=== PATIENT | female | born 1935 | race Asian ===

== ENCOUNTER 2019-12-07 23:40 | Emergency (ER) | payer MEDICARE, MEDICAID ==
[~2019-12-07] VITALS: Ht 160 cm; Wt 59.0 kg
[2019-12-08] MEDS ORDERED: normal saline 1000ML IV soln IVB ONE ×2 (00:20→01:10)
[2019-12-08 00:29] LABS: HEMATOCRIT 34.9 % (35.0-45.0); HEMOGLOBIN 10.9 g/dl (12.0-16.0); MEAN CORPUSCULAR HEMOGLOBIN 19.1 PG (27.0-31.0); MEAN CORPUSCULAR HGB CONC 31.2 g/dL (33.0-36.5); MEAN CORPUSCULAR VOLUME 61.3 FL (78-98); MEAN PLATELET VOLUME 8.7 FL (7.4-10.4); PLATELET COUNT 194 X10'3 (140-440); RED CELL DISTRIBUTION WIDTH 15.9 % (11.5-14.5); WHITE BLOOD COUNT 7.2 X10'3 (4.5-11.0)
[2019-12-08 00:42] LABS: ALANINE AMINOTRANSFERASE 20 U/L (12-78); ALBUMIN 3.4 G/DL (3.4-5.0); ALBUMIN/GLOBULIN RATIO 0.9 (1.1-1.5); ALKALINE PHOSPHATASE 97 IU/L (46-116); ANION GAP 12 (8-16); ASPARTATE AMINO TRANSFERASE 24 U/L (10-37); BILIRUBIN,TOTAL 0.7 MG/DL (0.1-1.0); BLOOD UREA NITROGEN 24 MG/DL (7-18); BUN/CREATININE RATIO 10.4 (6.6-38.0); CALCIUM 9.2 MG/DL (8.5-10.1); CHLORIDE 105 MMOL/L (99-107); CREATININE 2.31 MG/DL (0.40-0.90); GLUCOSE 133 MG/DL (70-104); SODIUM 143 MMOL/L (135-145); TOTAL PROTEIN 7.2 G/DL (6.4-8.2); eGFR 20 ML/MIN
[2019-12-08 00:46] LABS: POTASSIUM 2.9 MMOL/L (3.5-5.1)
[2019-12-08] MEDS ORDERED: potassium Cl 20 mEq SR tablet PO STA (01:01)
[2019-12-08] MEDS ORDERED: potassium Cl 10 mEq/100mL bag IV ONE (01:05)
--- NOTE | 2019-12-08 01:17 | NUR ---
notified of elevated BP. No new orders at this time. MD to examine pt. soon.
[2019-12-08 02:10] LABS: CLARITY,URINE CLEAR (Clear); COLOR,URINE YELLOW (Yellow); GLUCOSE, URINE NEGATIVE (Neg); KETONES,URINE NEGATIVE (Neg); LEUKOCYTE ESTERASE ,URINE NEGATIVE (Neg); NITRITES, URINE NEGATIVE (Neg); OCCULT BLOOD,URINE NEGATIVE (Neg); PROTEIN,URINE 100 mg/dl (Neg); UROBILINOGEN,URINE 0.2 E.U/dL (0.2-1.0)
[2019-12-08 02:12] LABS: UA COLLECTION TYPE CLN CATCH MIDSTREAM
[2019-12-08 02:26] LABS: RBC,URINE NONE SEEN /HPF (0-2); WBC,URINE 0-4 /HPF (0-4)
[2019-12-08 02:27] LABS: BACTERIA,URINE NONE SEEN /HPF (Neg); MUCUS STRANDS MODERATE /LPF (Neg); SQUAMOUS EPITHELIAL CELL,UR FEW /LPF (FEW)
[2019-12-08 02:45] VITALS: BP 207/106
[2019-12-08 03:27] LABS: TOTAL CELLS COUNTED 100
[2019-12-08 03:28] LABS: MICROCYTOSIS 2+; PLATELET ESTIMATE NORMAL
[2019-12-08 03:32] LABS: HYPOGRANULAR PLATELETS FEW
[2019-12-08 03:33] LABS: TARGET CELLS FEW
== END 2019-12-08 03:03 | disposition home or self-care (01) ==
LOC: ER 23:41
DX: R53.1 Weakness (principal); K04.7 Periapical abscess without sinus; E87.6 Hypokalemia; E86.0 Dehydration; I10 Essential (primary) hypertension; I48.91 Unspecified atrial fibrillation
CPT/HCPCS: 36415; 80053; 81001; 82948; 84439; 84443; 84484; 85025; 93005; 96365; 99284; J3480; J7030; 96360; 96361

== ENCOUNTER 2019-12-10 23:07 | Inpatient (IN) | payer MEDICARE, OTHER ==
[~2019-12-10] VITALS: Ht 154.9 cm; Wt 47.7 kg
[2019-12-11 00:06] LABS: HEMATOCRIT 35.5 % (35.0-45.0); HEMOGLOBIN 11.1 g/dl (12.0-16.0); MEAN CORPUSCULAR HGB CONC 31.3 g/dL (33.0-36.5); MEAN CORPUSCULAR VOLUME 60.8 FL (78-98); MEAN PLATELET VOLUME 8.9 FL (7.4-10.4); PLATELET COUNT 215 X10'3 (140-440); RED BLOOD COUNT 5.84 X10'6 (4.20-5.60); RED CELL DISTRIBUTION WIDTH 15.6 % (11.5-14.5); WHITE BLOOD COUNT 7.1 X10'3 (4.5-11.0)
[2019-12-11 00:24] LABS: ALANINE AMINOTRANSFERASE 25 U/L (12-78); ALBUMIN 3.6 G/DL (3.4-5.0); ALBUMIN/GLOBULIN RATIO 0.9 (1.1-1.5); ALKALINE PHOSPHATASE 99 IU/L (46-116); ANION GAP 9 (8-16); ASPARTATE AMINO TRANSFERASE 22 U/L (10-37); BILIRUBIN,TOTAL 1.1 MG/DL (0.1-1.0); BLOOD UREA NITROGEN 25 MG/DL (7-18); BUN/CREATININE RATIO 10.6 (6.6-38.0); CALCIUM 9.5 MG/DL (8.5-10.1); CHLORIDE 106 MMOL/L (99-107); CREATININE 2.36 MG/DL (0.40-0.90); GLUCOSE 90 MG/DL (70-104); POTASSIUM 3.2 MMOL/L (3.5-5.1); SODIUM 143 MMOL/L (135-145); TOTAL CARBON DIOXIDE 27.8 MMOL/L (24-32); TOTAL PROTEIN 7.5 G/DL (6.4-8.2); eGFR 20 ML/MIN
[2019-12-11 00:26] LABS: ETHANOL < 0.010 GM/DL (0.0-0.010)
[2019-12-11 00:30] LABS: ANISOCYTOSIS 2+; PLATELET ESTIMATE NORMAL; TOTAL CELLS COUNTED 100
[2019-12-11 00:31] LABS: POIKILOCYTOSIS 1+; TARGET CELLS FEW
[2019-12-11 00:33] LABS: CLARITY,URINE CLEAR (Clear); COLOR,URINE YELLOW (Yellow); GLUCOSE, URINE NEGATIVE (Neg); KETONES,URINE NEGATIVE (Neg); LEUKOCYTE ESTERASE ,URINE NEGATIVE (Neg); NITRITES, URINE NEGATIVE (Neg); OCCULT BLOOD,URINE NEGATIVE (Neg); PH,URINE 5.5 (4.8-8.0); PROTEIN,URINE 100 mg/dl (Neg); UROBILINOGEN,URINE 0.2 E.U/dL (0.2-1.0)
[2019-12-11] MEDS ORDERED: normal saline 1000ML IV soln IVB ONE (00:35)
[2019-12-11 00:36] LABS: URINE AMPHETAMINE SCREEN NEGATIVE (Neg); URINE BARBITUATE SCREEN NEGATIVE (Neg); URINE BENZODIAZEPINES SCREEN NEGATIVE (Neg); URINE CANNABINOID SCREEN NEGATIVE (Neg); URINE COCAINE SCREEN NEGATIVE (Neg); URINE METHADONE SCREEN NEGATIVE (Neg); URINE OPIATE SCREEN NEGATIVE (Neg); URINE PHENCYCLIDINE SCREEN NEGATIVE (Neg)
[2019-12-11 00:37] LABS: UA COLLECTION TYPE CLN CATCH MIDSTREAM
[2019-12-11 00:38] LABS: WBC,URINE 0-4 /HPF (0-4)
[2019-12-11 00:39] LABS: BACTERIA,URINE NONE SEEN /HPF (Neg); RBC,URINE NONE SEEN /HPF (0-2); SQUAMOUS EPITHELIAL CELL,UR FEW /LPF (FEW)
[2019-12-11] MEDS ORDERED: labetalol 20mg/4ml (5mg/ml) syringe IV ONE (00:55)
[2019-12-11] MEDS ORDERED: FURO-150 PO (02:47)
[2019-12-11] MEDS ORDERED: POTA8CAP20 PO (02:47)
[2019-12-11] MEDS ORDERED: HYDR100T27 PO (02:47)
[2019-12-11] MEDS ORDERED: LOSA100T57 PO (02:47)
[2019-12-11] MEDS ORDERED: GLIP5TAB13 PO (02:47)
[2019-12-11] MEDS ORDERED: APIX2.5T PO (02:47)
[2019-12-11] MEDS ORDERED: ATOR40TA PO (02:47)
[2019-12-11] MEDS ORDERED: DIGO125T20 PO (02:47)
[2019-12-11] MEDS ORDERED: ISOS30TA9 PO (02:47)
[2019-12-11] MEDS ORDERED: SERT25TA PO (02:47)
--- NOTE | 2019-12-11 06:20 | NUR ---
PATIENT PACKET FAXED TO [facility] BY RENATO ALEXANDER
[2019-12-11] MEDS: losartan 50mg tablet PO SCH (08:49)
[2019-12-11] MEDS: apixaban 2.5mg tablet PO SCH ×2 (08:49→21:04)
[2019-12-11] MEDS: hydrALAZINE 25 MG tablet PO SCH ×3 (08:49→23:19)
[2019-12-11] MEDS: potassium chloride 8mEq ER tablet PO SCH (08:50)
[2019-12-11] MEDS: atorvastatin 20mg tablet PO SCH (08:50)
[2019-12-11] MEDS: glipizide 5mg tablet PO SCH ×2 (08:50→21:05)
[2019-12-11] MEDS: sertraline 50mg tablet PO SCH (08:50)
[2019-12-11] MEDS: furosemide 20MG tablet PO SCH (08:50)
[2019-12-11] MEDS: digoxin 125mcg (0.125mg) tablet PO SCH (09:28)
--- NOTE | 2019-12-11 10:16 | NUR ---
assisted patient into wheelchair and transfered from room 9 in main ER to room 26 in overflow without incident
--- NOTE | 2019-12-11 10:35 | NUR ---
pt is in bed laying on her left side, no s/s of agitation observed
--- NOTE | 2019-12-11 11:25 | NUR ---
pt [facility] is here and [facility], pt is still laying in bed eyes closed, regular breathing present, no s/s of distress observed
--- NOTE | 2019-12-11 12:37 | NUR ---
pt assisted to the bathroom, she stated multiple times that she wants to , no longer wishes to live, to let her go
--- NOTE | 2019-12-11 12:42 | NUR ---
SON: CHULA HDEZ [phone] CELL, HE WORKS AT [facility] [employer] [facility] [phone] IF HE CANNOT BE REACHED, CALL [facility] [phone]
--- NOTE | 2019-12-11 13:30 | NUR ---
PT ASSISTED TO BATHROOM, ATE VERY LITTLE FOR LUNCH
--- NOTE | 2019-12-11 14:32 | NUR ---
PT IS RESTING ON LEFT SIDE, ACCEPTED MEDICATION WITH NO DIFFICULTY, WILL ONLY DRINK SIPS OF WATER, ATE VERY LITTLE
--- NOTE | 2019-12-11 15:12 | NUR ---
PT IS LAYING IN BED ON RIGHT SIDE REGULAR BREATHING OBSERVED, WILL CONTINUE TO MONITOR
--- NOTE | 2019-12-11 16:23 | NUR ---
SPOKE TO ABDULKADIR IN PHARMACY, TO VERIFY DOES OF HYDRALAZINE 100MG TID, HE STATES THIS IS THE CORRECT DOSE UPTO 300MG A DAY
--- NOTE | 2019-12-11 16:42 | NUR ---
PT WAS ACCEPTING OF MEDICATIONS AND BLOOD DRAW, ALSO DRANK 240 ML WATER
--- NOTE | 2019-12-11 20:02 | NUR ---
The patient has been resting on her bed. She has a flat affect. She does not respond verbally but does shake her head yes or no. She reports she feels depressed but denies suicidal thoughts. She is ate very poorly and only took a few bits of her evening meal.
--- NOTE | 2019-12-11 22:08 | NUR ---
The patient appears to be sleeping
--- NOTE | 2019-12-11 23:20 | NUR ---
Patient up to use the bathroom with assist
--- NOTE | 2019-12-12 01:50 | NUR ---
The patient appears to be sleeping
--- NOTE | 2019-12-12 04:06 | NUR ---
The patient appears to be sleeping
[2019-12-12] MEDS: digoxin 125mcg (0.125mg) tablet PO SCH (08:00)
[2019-12-12] MEDS: atorvastatin 20mg tablet PO SCH (09:51)
[2019-12-12] MEDS: apixaban 2.5mg tablet PO SCH ×2 (09:52→20:15)
[2019-12-12] MEDS: losartan 50mg tablet PO SCH (09:52)
[2019-12-12] MEDS: sertraline 50mg tablet PO SCH (09:52)
[2019-12-12] MEDS: glipizide 5mg tablet PO SCH ×2 (09:52→20:15)
[2019-12-12] MEDS: potassium chloride 8mEq ER tablet PO SCH (09:52)
[2019-12-12] MEDS: furosemide 20MG tablet PO SCH (09:52)
[2019-12-12] MEDS: hydrALAZINE 25 MG tablet PO SCH ×2 (09:52→16:53)
--- NOTE | 2019-12-12 10:08 | NUR ---
ASSISSTED PT TO BR VIA W/C, ASSESSMENT AND VS DONE PRIOR TO AM MEDS. PT COOPERATIVE AND CALM BUT HAS A SAD AFFECT, WAITING FAMILY TO COME IN TO CONVERSE WITH [facility]
--- NOTE | 2019-12-12 10:43 | NUR ---
PT SON IN TO VISIT. NOTIFIED [facility].
--- NOTE | 2019-12-12 12:55 | NUR ---
ACCUCHECK 103
--- NOTE | 2019-12-12 13:23 | NUR ---
LUNCH TRAY GIVEN
--- NOTE | 2019-12-12 14:25 | NUR ---
ASSISSTED PT WITH SOME LUNCH BUT PT ONLY WANTED A FEW BITES. WILL ATTEMPT AGAIN
--- NOTE | 2019-12-12 16:47 | NUR ---
patient asleep at this time.
--- NOTE | 2019-12-12 17:29 | NUR ---
pt up, assissted walking to br, encouraged fluids
--- NOTE | 2019-12-12 21:00 | NUR ---
Pt appears to be resting comfortably in bed. No s/s of distress noted
--- NOTE | 2019-12-12 22:49 | NUR ---
Pt appears to be resting comfortably in bed. No s/s of distress noted
--- NOTE | 2019-12-12 23:30 | NUR ---
Pt appears to be resting comfortably in bed. No s/s of distress noted
[2019-12-13] MEDS: hydrALAZINE 25 MG tablet PO SCH ×3 (00:12→16:26)
--- NOTE | 2019-12-13 00:34 | NUR ---
Pt appears to be resting comfortably in bed. No s/s of distress noted
--- NOTE | 2019-12-13 00:49 | NUR ---
Recieved pt sleeping, no distress noted, but pt coughing intermittently. Will continue to monitor.
--- NOTE | 2019-12-13 03:09 | NUR ---
Pt sleeping, will continue to monitor.
--- NOTE | 2019-12-13 05:27 | NUR ---
Pt sleeping. Will continue to monitor.
--- NOTE | 2019-12-13 08:19 | NUR ---
CALLED CHULA WONG NUMBER [phone] NON WORKING NUMBER. [facility] CONTACT [phone] WENT TO VOICEMAIL.
[2019-12-13] MEDS: glipizide 5mg tablet PO SCH ×2 (08:38→20:14)
[2019-12-13] MEDS: atorvastatin 20mg tablet PO SCH (08:39)
[2019-12-13] MEDS: apixaban 2.5mg tablet PO SCH ×2 (08:39→20:13)
[2019-12-13] MEDS: sertraline 50mg tablet PO SCH (08:43)
[2019-12-13] MEDS: potassium chloride 8mEq ER tablet PO SCH (08:43)
[2019-12-13] MEDS: furosemide 20MG tablet PO SCH (08:43)
[2019-12-13] MEDS: losartan 50mg tablet PO SCH (08:43)
[2019-12-13] MEDS: digoxin 125mcg (0.125mg) tablet PO SCH (08:43)
--- NOTE | 2019-12-13 10:00 | NUR ---
ambulated to br, stool x1
--- NOTE | 2019-12-13 10:50 | NUR ---
pt resting in bed. no s/s of distress or pain. rr of 15. will continue to monitor.
--- NOTE | 2019-12-13 14:56 | NUR ---
pt ambulating to br withoutas Addendum: 12/13/19 at 1457 by JLAMBERT pt ambulating to br without asst. tolerating well. voidedx1
--- NOTE | 2019-12-13 16:27 | NUR ---
pt cooperative with care. taking meds well.
--- NOTE | 2019-12-13 19:00 | NUR ---
PT RESTING IN BED. ENCOURAGED TO EAT DINNER TRAY.
--- NOTE | 2019-12-13 21:00 | NUR ---
PT ASLEEP ON R SIDE RR 14
--- NOTE | 2019-12-13 23:56 | NUR ---
PT ASLEEP IN BED ON L SIDE NO SIGNS OR SYMPTOMS OF DISTRESS
--- NOTE | 2019-12-14 | NUR ---
PT GIVEN 0000 DOSE OF HYDRALIZINE WITH NO ISSUES.
[2019-12-14] MEDS: hydrALAZINE 25 MG tablet PO SCH ×3 (00:14→16:49)
--- NOTE | 2019-12-14 02:00 | NUR ---
PT ASLEEP ON R SIDE RR WNL
--- NOTE | 2019-12-14 05:00 | NUR ---
IV D/C'D NO FLUIDS ORDERED. REMOVED AND CLEANSED WITH NO ISSUES.
[2019-12-14] MEDS: sertraline 50mg tablet PO SCH (08:38)
[2019-12-14] MEDS: atorvastatin 20mg tablet PO SCH (08:39)
[2019-12-14] MEDS: apixaban 2.5mg tablet PO SCH ×2 (08:39→20:29)
[2019-12-14] MEDS: potassium chloride 8mEq ER tablet PO SCH (08:39)
[2019-12-14] MEDS: furosemide 20MG tablet PO SCH (08:39)
[2019-12-14] MEDS: losartan 50mg tablet PO SCH (08:39)
[2019-12-14] MEDS: glipizide 5mg tablet PO SCH ×2 (08:39→20:29)
[2019-12-14] MEDS: digoxin 125mcg (0.125mg) tablet PO SCH (08:40)
--- NOTE | 2019-12-14 12:36 | NUR ---
Recieved report from BENJAMIN Hanks, assumed care. Pt. laying quietly with eyes closed. RR even and non-labored. nad noted.
--- NOTE | 2019-12-14 13:15 | NUR ---
Pt. sat up at bedside and looked at meal but did not eat. When coaxed to eat she shook her head no. nad noted.
--- NOTE | 2019-12-14 14:57 | NUR ---
Pt. resting in bed with eyes closed. breathing even and non-labored. nad noted.
--- NOTE | 2019-12-14 16:30 | NUR ---
Pt. laying on right side with eyes closed. breathing even and non-labored. nad noted.
--- NOTE | 2019-12-14 18:47 | NUR ---
PT CONTINUES TO SLEEP. SHE WOKE UP AND SAT UP WHEN DINNER ARRIVED BUT HAS NOT EATEN ANYTHING YET. WILL CONTINUE TO MONITOR.
--- NOTE | 2019-12-14 20:32 | NUR ---
PT RESTING IN BED- NOT DISPLAYING ANY SIGNS OF DISTRESS OR DISCOMFORT. PT TOOK MEDICATION WITH NO REFUSAL. WILL CONTINUE TO MONITOR.
--- NOTE | 2019-12-14 21:28 | NUR ---
PT CONTINUES TO REST IN BED; NO SIGNS OF DISTRESS OR DISCOMFORT NOTED. WILL CONTINUE TO MONITOR.
--- NOTE | 2019-12-14 22:34 | NUR ---
PT CONTINUES TO SLEEP WITH BREATHING RATE REGULAR AND UNLABORED. PT DOES NOT APPEAR TO BE IN ANY DISTRESS OR DISCOMFORT. WILL CONTINUE TO MONITOR.
--- NOTE | 2019-12-14 23:35 | NUR ---
PT CONTINUES TO SLEEP WITH NO SIGNS OF DISTRESS. BREATHING IS REGULAR. WILL CONTINUE TO MONITOR.
[2019-12-15] MEDS: hydrALAZINE 25 MG tablet PO SCH ×3 (00:49→17:11)
--- NOTE | 2019-12-15 01:47 | NUR ---
PT CONTINUES TO SLEEP WITH BREATHING RATE REGULAR AND UNLABORED. WILL CONTINUE TO MONITOR.
--- NOTE | 2019-12-15 03:59 | NUR ---
PT CONTINUES TO SLEEP WITH BREATHING RATE WNL AND UNLABORED. WILL CONTINUE TO MONITOR.
--- NOTE | 2019-12-15 05:04 | NUR ---
PT CONTINUES TO SLEEP WITH BREATHING RATE NORMAL AND UNLABORED. WILL MONITOR.
--- NOTE | 2019-12-15 07:56 | NUR ---
pt sleeping quietly
[2019-12-15] MEDS: atorvastatin 20mg tablet PO SCH (08:16)
[2019-12-15] MEDS: potassium chloride 8mEq ER tablet PO SCH (08:16)
[2019-12-15] MEDS: losartan 50mg tablet PO SCH (08:16)
[2019-12-15] MEDS: furosemide 20MG tablet PO SCH (08:16)
[2019-12-15] MEDS: sertraline 50mg tablet PO SCH (08:16)
[2019-12-15] MEDS: glipizide 5mg tablet PO SCH ×2 (08:16→22:13)
[2019-12-15] MEDS: apixaban 2.5mg tablet PO SCH ×2 (08:18→22:13)
[2019-12-15] MEDS: digoxin 125mcg (0.125mg) tablet PO SCH (08:18)
--- NOTE | 2019-12-15 08:32 | NUR ---
pt awake eating breakfast.
--- NOTE | 2019-12-15 13:31 | NUR ---
Patient is sleeping. In view from nursing station.
--- NOTE | 2019-12-15 16:27 | NUR ---
spoke with shantal son phone number [phone], correct number. shantal work number [phone] at [employer]. states, past 3-4 weeks not allowing any care. doesnt change her clothes and will not bathe. refusing to eat but will eat when she wants. shantal also mentioned that he feels like she putting a guilt trip on him, "soha taken care of you as a baby and now your not taking care of me." hes trying to do the best he can. will cook what she wants but pt wont eat it, then when hes not looking will eat leftovers. shantal becoming very frustrated. pt will refuse to eat all seafood. shantal would like to get a DNR for pt if this is her wish, but feels a professional motor polarizer would be best because of conflict of interest. will contact in house social worker aide. pt is refusing to bathe and change her clothes for me today. ate 25% of breakfast and 0% lunch.
--- NOTE | 2019-12-15 16:52 | NUR ---
spoke with kathleen family friend [phone], has been very difficult for her and shantal. pt does not want to eat, change her clothes and bathe. all pt says is i want to . has become very hard to take care of her.
--- NOTE | 2019-12-15 18:49 | NUR ---
Patient is sitting up in bed. Patient is tearful looking. Patient speaks Malawian. Patient tells this radio script writer that she wants to go outside and . Patient tells this radio script writer that she is Budist. She states she does not want to live. The patient reportibly lost her recently and then experienced a CVA? Patient is reported to be ambulatory . The patient has eaten approximately 20 percent of her dinner. In discussion with this patient she begins to speak Czech with this radio script writer. The patient does speak Czech, this was not previously observed. The patient speaks slowly and softly. Patient denies pain. The patient calms when talking about her Budist uatsdin. The patient was given warm blankets which she accepted. The patient then went to sleep on her right side. Addendum: 12/16/19 at 0413 by LONI Patients affect is flat. She admits to depression. "I want to go outside and ." Patient is cooperative with staff and polite. Patient does not offer a suicide plan.
--- NOTE | 2019-12-15 19:45 | NUR ---
Patient repositions self in bed onto her left side.
--- NOTE | 2019-12-15 21:00 | NUR ---
Patient sleeping quietly. Patient repositions self in bed.
--- NOTE | 2019-12-15 22:16 | NUR ---
This advertising writer awoke patient for her medications. The patient is medication compliant. When asked how she was doing the patient replied aok. The patient was given another warm blanket. She returned to sleep.
[2019-12-16] MEDS: hydrALAZINE 25 MG tablet PO SCH ×3 (00:03→15:56)
--- NOTE | 2019-12-16 01:15 | NUR ---
Patient sleeping on her left side, bed in low fowlers position. In view from nursing station.
--- NOTE | 2019-12-16 03:56 | NUR ---
Patient is sleeping quietly, low fowlers position in bed.
--- NOTE | 2019-12-16 05:01 | NUR ---
Patient is sleeping low fowlers in bed.
--- NOTE | 2019-12-16 07:30 | NUR ---
RN performed CBG which was 95. RN attempted to assess pt. Pt. is A&O to self only. When asked why she is here, pt. responded, "No... I wantto , I want to ". When asked if she has a plan pt. states, "I want to ". When asked if she hears voices, pt. continues to perseverate stating, "I want to go, I want to go, I want to go". Pt. refused physical assessment.
[2019-12-16] MEDS: glipizide 5mg tablet PO SCH ×2 (07:57→22:30)
[2019-12-16] MEDS: atorvastatin 20mg tablet PO SCH (07:58)
[2019-12-16] MEDS: losartan 50mg tablet PO SCH (07:58)
[2019-12-16] MEDS: potassium chloride 8mEq ER tablet PO SCH (07:58)
[2019-12-16] MEDS: sertraline 50mg tablet PO SCH (07:58)
[2019-12-16] MEDS: furosemide 20MG tablet PO SCH (07:59)
[2019-12-16] MEDS: apixaban 2.5mg tablet PO SCH ×2 (08:02→22:30)
[2019-12-16] MEDS: digoxin 125mcg (0.125mg) tablet PO SCH (08:02)
--- NOTE | 2019-12-16 08:51 | NUR ---
Pt. ate her oatmeal and drank a few sips of her coffee.
--- NOTE | 2019-12-16 09:30 | NUR ---
Pt. asleep in supine position in bed. Pt. R&R of respirations normal. Pt. in no apparent distress.
--- NOTE | 2019-12-16 09:43 | NUR ---
Breaking primary RN, pt is supine inbed, regular breathing observed, appears to be asleep, no needs at this time
--- NOTE | 2019-12-16 10:00 | NUR ---
Pt. escorted up to [facility] in wheel chair for shower. while escorted, pt. had one x2 emesis, which appeared to be her oatmeal she ate this morning. Pt. agreed she still wanted a shower. Pt. showered by 2 [place] techs and returned to ER room.
--- NOTE | 2019-12-16 10:15 | NUR ---
Pt. voided x1 before she showered per tech report.
--- NOTE | 2019-12-16 10:45 | NUR ---
Pt.'s son visited. During visit pt.'s interaction was mostly telling her son she wanted to . Pt.'s son is supportive and concerned, informing this RN that he is the only sibling who can care for her and he is concerened about his mom being discharged in her current state. Pt.'s son reports that pt. moved up here from [place] after her stroke so he could better care for her. Pt.'s son reports that pt. lives with family friends and he is often over checking up on her. Pt.'s son reports pt. is Yazdanism, but religion support is lacking due to COVID-19 restrictions. RN offerred second ride fare collector support to pt. but pt. did not respond to offer.
--- NOTE | 2019-12-16 12:14 | NUR ---
breaking primary RN, pt is laying on her right side, eyes closed, regular breathing observed, no agitatation apparent
--- NOTE | 2019-12-16 13:00 | NUR ---
Pt. refused her lunch. Pt. took 1300 medication. Pt. encouraged to drink more but refused.
--- NOTE | 2019-12-16 14:23 | NUR ---
Patient requests to placed on DNR, however, RN spoke with social service worker and was informed that since patient is on a 5150 pt. cannot be started on a DNR.
--- NOTE | 2019-12-16 14:30 | NUR ---
Pt. laying on right side normal R&R of respirations noted. Pt. in no apparant distress.
--- NOTE | 2019-12-16 16:56 | NUR ---
RN assisted pt. to bathroom. pt. has weak gate. Pt. voided light kristan colored urine.
--- NOTE | 2019-12-16 17:31 | NUR ---
Pt. laying on right side. RN took vitals. Pt. cooperative. Pt. presents with depressed affect.
--- NOTE | 2019-12-16 18:30 | NUR ---
Patient brought back to Overflow from the main ER. She is awake and well oriented. Patient still states depression. Her affect is flat. Speach is slow and quiet. The patient states "I want to ." There is no S/I plan. Patient denies H/I or any hallucinations. Patient converses with this ticket writer in Portuguese and a small bit of Xu. Frequent rounding will be done for patient safety. Patients bed is in direct view from the nursing station.
--- NOTE | 2019-12-16 19:00 | NUR ---
This patient has eaten a full dinner. She quietly lays back and goes to sleep in a low fowlers position.
--- NOTE | 2019-12-16 20:10 | NUR ---
Patient is sleeping quietly on her right side. In view from nursing station.
--- NOTE | 2019-12-16 21:31 | NUR ---
Patient sleeping, low fowlers in bed.
--- NOTE | 2019-12-16 22:13 | NUR ---
Patient sleeping on her left side. No distress.
--- NOTE | 2019-12-17 00:15 | NUR ---
Patient is sleeping supine in bed. In view from nursing station.
[2019-12-17] MEDS: hydrALAZINE 25 MG tablet PO SCH ×3 (00:48→16:00)
--- NOTE | 2019-12-17 01:11 | NUR ---
Breaking primary RN, pt. resting quietly, no signs of distress, respirations WNL
--- NOTE | 2019-12-17 02:04 | NUR ---
Patient awoke, was assisted to bathroom. Patient voided, she was assistated back to bed. Patients gait is ataxic. Plan is to ambulate patient with physicial support or walker as needed. Patient returned back to work.
--- NOTE | 2019-12-17 07:15 | NUR ---
Pt. sleeping in bed, respirations are even and unlabored.
--- NOTE | 2019-12-17 08:10 | NUR ---
Eating breakfast at this time, no s/s of distress noted.
[2019-12-17] MEDS: glipizide 5mg tablet PO SCH ×2 (08:21→22:25)
[2019-12-17] MEDS: sertraline 50mg tablet PO SCH (08:21)
[2019-12-17] MEDS: losartan 50mg tablet PO SCH (08:21)
[2019-12-17] MEDS: digoxin 125mcg (0.125mg) tablet PO SCH (08:22)
[2019-12-17] MEDS: apixaban 2.5mg tablet PO SCH ×2 (08:24→22:25)
[2019-12-17] MEDS: atorvastatin 20mg tablet PO SCH (08:24)
[2019-12-17] MEDS: furosemide 20MG tablet PO SCH (08:24)
[2019-12-17] MEDS: potassium chloride 8mEq ER tablet PO SCH (08:28)
--- NOTE | 2019-12-17 10:25 | NUR ---
Patient laying on her right side sleeping. Respirations are even and unlabored.
--- NOTE | 2019-12-17 11:16 | NUR ---
Patient up to void, pt very weak gait. Given walker, on way back to bed patient had emesis of approximately 100 ml of fluid. Patient back to bed without any more n/v. Will continue to monitor.
--- NOTE | 2019-12-17 13:25 | NUR ---
It has been noted by staff pt only eating soft foods. Info communicated to EDMD Barbie; new orders placed to change diet from regular to mechanical soft w/ addition of protein shake.
--- NOTE | 2019-12-17 15:30 | NUR ---
Patient sleeping supine in bed. Respirations even and nonlabored.
[2019-12-17] MEDS: protein shake 8oz. (237ml) PO SCH (18:00)
--- NOTE | 2019-12-17 19:00 | NUR ---
Pt eating dinner.
--- NOTE | 2019-12-17 20:00 | NUR ---
Pt up to restroom with assistance.
--- NOTE | 2019-12-17 21:00 | NUR ---
Pt resting quietly, respirations normal, no s/s of distress.
--- NOTE | 2019-12-17 22:00 | NUR ---
Pt resting quietly, respirations normal, no s/s of distress.
--- NOTE | 2019-12-17 23:20 | NUR ---
Pt resting quietly, respirations normal, no s/s of distress.
--- NOTE | 2019-12-18 | NUR ---
Pt resting quietly, respirations normal, no s/s of distress.
--- NOTE | 2019-12-18 01:00 | NUR ---
Pt resting quietly, respirations normal, no s/s of distress.
--- NOTE | 2019-12-18 02:00 | NUR ---
Pt resting quietly, respirations normal, no s/s of distress.
--- NOTE | 2019-12-18 03:34 | NUR ---
Pt resting quietly, respirations normal, no s/s of distress.
--- NOTE | 2019-12-18 05:11 | NUR ---
Pt resting quietly, respirations normal, no s/s of distress.
[2019-12-18] MEDS: digoxin 125mcg (0.125mg) tablet PO SCH (07:30)
[2019-12-18] MEDS: protein shake 8oz. (237ml) PO SCH ×3 (08:00→18:00)
[2019-12-18] MEDS: sertraline 50mg tablet PO SCH (08:13)
[2019-12-18] MEDS: atorvastatin 20mg tablet PO SCH (08:13)
[2019-12-18] MEDS: hydrALAZINE 25 MG tablet PO SCH ×3 (08:14→17:21)
[2019-12-18] MEDS: apixaban 2.5mg tablet PO SCH ×2 (08:15→20:11)
[2019-12-18] MEDS: glipizide 5mg tablet PO SCH ×2 (08:15→20:11)
[2019-12-18] MEDS: potassium chloride 8mEq ER tablet PO SCH (08:15)
[2019-12-18] MEDS: furosemide 20MG tablet PO SCH (08:16)
[2019-12-18] MEDS: losartan 50mg tablet PO SCH (08:23)
--- NOTE | 2019-12-18 18:32 | NUR ---
Patient is sitting up, she is eating her dinner. Patient tells this principal technical writer she is still ready to . Patient denies S/I or hallucinations. Patient speaks in a quiet and soft voice. Affect is flat. patient refuses her protein drink but consumes the rest of her dinner.
--- NOTE | 2019-12-18 19:55 | NUR ---
Patient sleeping quietly on her left side. In view from nursing station.
--- NOTE | 2019-12-18 20:17 | NUR ---
Patient is awoken for acucheck and nightime medications. Patient is cooperative and medication compliant. Patient is repositioned in bed and given warm blankets. The patient says thank you and returns to sleep.
--- NOTE | 2019-12-18 22:29 | NUR ---
Patient is sleeping quietly on her left side. No signs of any distress. In view from nursing station.
[2019-12-19] MEDS: hydrALAZINE 25 MG tablet PO SCH ×3 (01:06→16:32)
--- NOTE | 2019-12-19 01:07 | NUR ---
Patient awakens, Rx med's given. A warm blanket is provided. Patient returns to sleep.
--- NOTE | 2019-12-19 02:18 | NUR ---
Patient sleeping low fowlers position in bed. No distress.
--- NOTE | 2019-12-19 03:31 | NUR ---
Patient sleeping, low fowlers position in bed.
--- NOTE | 2019-12-19 05:03 | NUR ---
Patient has repositiones self in bed. Sleeping quietly.
--- NOTE | 2019-12-19 06:01 | NUR ---
Patient awoke for vital signs then returned to sleep. No distress.
--- NOTE | 2019-12-19 06:38 | NUR ---
Nursing Note: Pt laying in bed, eyes closed, RR even and unlabored, no S&S of distress. Will continue to monitor.
[2019-12-19] MEDS: apixaban 2.5mg tablet PO SCH ×2 (07:21→20:15)
[2019-12-19] MEDS: atorvastatin 20mg tablet PO SCH (07:22)
[2019-12-19] MEDS: losartan 50mg tablet PO SCH (07:22)
[2019-12-19] MEDS: sertraline 50mg tablet PO SCH (07:22)
[2019-12-19] MEDS: potassium chloride 8mEq ER tablet PO SCH (07:22)
[2019-12-19] MEDS: furosemide 20MG tablet PO SCH (07:22)
[2019-12-19] MEDS: glipizide 5mg tablet PO SCH ×2 (07:22→20:15)
[2019-12-19] MEDS: digoxin 125mcg (0.125mg) tablet PO SCH (07:23)
--- NOTE | 2019-12-19 07:30 | NUR ---
Nursing Note: Pt laying in bed, eyes closed, no S&S of distress, RR even and unlabored, will continue to monitor.
[2019-12-19] MEDS: protein shake 8oz. (237ml) PO SCH ×4 (08:00→18:53)
--- NOTE | 2019-12-19 08:40 | NUR ---
Nursing Note: Pt sitting up in bed. She consumed 50% of her protein shake and 26 gms of carbs. Spanish is pt's second language. Unable to fully assess pt because she minimally responds to questions. No S&S of distress, will continue to monitor.
--- NOTE | 2019-12-19 10:05 | NUR ---
Nursing Note: Pt laying in bed on her L side, RR even and unlabored, no S&S of distress, will continue to monitor.
--- NOTE | 2019-12-19 10:50 | NUR ---
Nursing Note: Called son, Abdelrahman Awan to ask if patient has advanced directives. He indicated she used to have a DNR, but he does not have a copy. He said he would attempt to contact her doctor to see if the doctor has a copy. He also stated his mother has been throwing away a lot of items and she may have thrown the DNR away. Son indicates he will contact the ER if he finds a copy of her advance directives.
--- NOTE | 2019-12-19 11:30 | NUR ---
Nursing Note: Pt laying in bed eyes closed, no S&S of distress, will continue to monitor.
--- NOTE | 2019-12-19 12:58 | NUR ---
Nursing Note: pt laying in bed, RR even and unlabored, no S&S of distress, will continue to monitor.
--- NOTE | 2019-12-19 14:58 | NUR ---
Nursing Note: Pt laying in bed, eyes closed, no S&S of distress. 1300 medication late due to other patient care. Will continue to monitor.
--- NOTE | 2019-12-19 16:37 | NUR ---
Nursing Note: Attempted to obtain Release of Information for [facility] to obtain possible records pertaining to advance directives. Asked pt and she refused to provide consent, but unsure if she Addendum: 12/19/19 at 1639 by PBROWN Amend: Continue - unsure if patient understand the question. Another attempt should be made later with an interpreter translator. When the patient refused to give consent she stated, "I'm just so sorry, I feel so sorry all the time." Per the son, the patient has been seen at [facility] . Will continue to monitor.
--- NOTE | 2019-12-19 17:33 | NUR ---
Nursing Note: Pt laying in bed on R side, eyes closed, RR even and unlabored, no S&S of distress, will continue to monitor.
--- NOTE | 2019-12-19 20:16 | NUR ---
pt ambulated to the bathroom with assistance of walker
[2019-12-20] MEDS: hydrALAZINE 25 MG tablet PO SCH ×3 (00:42→18:05)
--- NOTE | 2019-12-20 04:39 | NUR ---
pt ambulated to the bathroom with the assistance of a walker
[2019-12-20] MEDS: protein shake 8oz. (237ml) PO SCH ×3 (08:00→18:00)
[2019-12-20] MEDS: furosemide 20MG tablet PO SCH (08:25)
[2019-12-20] MEDS: potassium chloride 8mEq ER tablet PO SCH (08:25)
[2019-12-20] MEDS: digoxin 125mcg (0.125mg) tablet PO SCH (08:25)
[2019-12-20] MEDS: apixaban 2.5mg tablet PO SCH ×2 (08:25→20:21)
[2019-12-20] MEDS: atorvastatin 20mg tablet PO SCH (08:26)
[2019-12-20] MEDS: glipizide 5mg tablet PO SCH ×2 (08:26→20:21)
[2019-12-20] MEDS: sertraline 50mg tablet PO SCH (08:26)
[2019-12-20] MEDS: losartan 50mg tablet PO SCH (08:29)
--- NOTE | 2019-12-20 10:49 | NUR ---
patient on right velasquez,asleep,respirations regular.
--- NOTE | 2019-12-20 20:00 | NUR ---
Pt resting quietly, respirations normal, no s/s of distress.
--- NOTE | 2019-12-20 21:00 | NUR ---
Pt resting quietly, respirations normal, no s/s of distress.
--- NOTE | 2019-12-20 22:00 | NUR ---
Pt resting quietly, respirations normal, no s/s of distress.
--- NOTE | 2019-12-20 23:00 | NUR ---
Pt resting quietly, respirations normal, no s/s of distress.
--- NOTE | 2019-12-20 23:43 | NUR ---
Pt up to bathroom. Pt stated several times, "I want to ".
--- NOTE | 2019-12-21 01:00 | NUR ---
Pt resting quietly, respirations normal, no s/s of distress.
--- NOTE | 2019-12-21 02:00 | NUR ---
Pt resting quietly, respirations normal, no s/s of distress.
--- NOTE | 2019-12-21 03:00 | NUR ---
Pt resting quietly, respirations normal, no s/s of distress.
--- NOTE | 2019-12-21 04:06 | NUR ---
Pt resting quietly, respirations normal, no s/s of distress.
--- NOTE | 2019-12-21 06:40 | NUR ---
Patient sleeping on left side. No distress observed. Continue to monitor.
[2019-12-21] MEDS: sertraline 50mg tablet PO SCH (07:47)
[2019-12-21] MEDS: hydrALAZINE 25 MG tablet PO SCH ×3 (07:48→18:44)
[2019-12-21] MEDS: atorvastatin 20mg tablet PO SCH (07:48)
[2019-12-21] MEDS: losartan 50mg tablet PO SCH (07:48)
[2019-12-21] MEDS: glipizide 5mg tablet PO SCH ×2 (07:48→20:33)
[2019-12-21] MEDS: apixaban 2.5mg tablet PO SCH ×2 (07:49→20:33)
[2019-12-21] MEDS: digoxin 125mcg (0.125mg) tablet PO SCH (07:49)
[2019-12-21] MEDS: furosemide 20MG tablet PO SCH (07:49)
[2019-12-21] MEDS: potassium chloride 8mEq ER tablet PO SCH (08:23)
[2019-12-21] MEDS: protein shake 8oz. (237ml) PO SCH ×3 (08:45→18:54)
--- NOTE | 2019-12-21 09:09 | NUR ---
Patient ambulatory to BR, steady gait with walker. Tech at side. Continue to monitor.
--- NOTE | 2019-12-21 09:15 | NUR ---
Patient walking back to bed with tech. Patient appears unsteady on her feet and needed assistance to get back to bed. Continue to monitor.
--- NOTE | 2019-12-21 09:19 | NUR ---
ASSUMED CARE WHILE RN IS ON 15 MIN BREAK PT. HAS NO NEEDS AT THIS TIME
--- NOTE | 2019-12-21 10:30 | NUR ---
Patient sleeping on left side. No distress observed. Continue to monitor.
--- NOTE | 2019-12-21 11:06 | NUR ---
PATIENT AMBULATED WITH AN UNSTEADY GATE. PATIENT USED WALKER BUT STILL NEEDED ASSISTANCE FROM STAFF.
[2019-12-21] MEDS ORDERED: normal saline 1000ml 1,000 ML IV ONE ×2 (11:25→20:04)
[2019-12-21] MEDS ORDERED: normal saline 1000ML IV soln IVB ONE ×2 (11:25→20:05)
--- NOTE | 2019-12-21 12:10 | NUR ---
RN started I.V. and patient receiving I.V. fluid. Patient tolerated well. Continue to monitor.
--- NOTE | 2019-12-21 12:39 | NUR ---
a home Notified by Dr. Hoffman that Dr. De Jesus is asking for patient to be admitted, reviewed record, discussed patient clinicals, agree that patient does not meet criteria for admission, called and spoke with son, explained that due to patient insurance that patient can not be placed and unfortunately the hospital is not a board and care, discussed home health, and various other community referrals, states that he has been having issues with finding a permenant home and has been renting rooms, discussed that with home health a social media job titles can be provided to assist with housing referrals, spoke with Dr. De Jesus, discussed the above, order signed for home health, will have nursing, PT/OT, PROJECT ACCOUNTANT assess patient, son is to come and pick patient up, notified primary nurse of above and Dr. Hoffman
--- NOTE | 2019-12-21 13:12 | NUR ---
Patient sitting up and eating. Patient receiving I.V. fluids. No distress observed. Continue to monitor.
--- NOTE | 2019-12-21 15:30 | NUR ---
Patient sleeping on left side. No distress observed. Continue to monitor.
--- NOTE | 2019-12-21 16:07 | NUR ---
Patient has not been picked up yet and RN left a second message with family who is not answering their phone. Patient sleeping supine. No distress observed. Continue to monitor.
--- NOTE | 2019-12-21 17:11 | NUR ---
Patient finished IV fluid. Patient supposed to be discharged but looks like family is not answering so patient is dumped in E.D. Patient has been eating well today. Patient was helped to the BR, ambulatory with walker. Patient did well. Continue to monitor.
--- NOTE | 2019-12-21 19:00 | NUR ---
This patient is awake and well oriented. She ate a full dinner including a protein drink. Patient is medication compliant and friendly to this television writer. Patient states she is ready to , she does not have anyone who wants to care for her. Close observation of patient condition. The ER ED is evaluating this patient for a possible medical admit.
--- NOTE | 2019-12-21 19:10 | NUR ---
Patient is eating a regular meal.
--- NOTE | 2019-12-21 19:33 | NUR ---
A clean catch urine has been obtained, this lyric writer shiv blood samples from the existing saline lock. Dr. Hi the hospitalist is interviewing this patient now.
[2019-12-21 19:39] LABS: BASOPHILS # (AUTO) 0.1 X10'3 (0-0.2); EOSINOPHILS # (AUTO) 0.1 X10'3 (0-0.9); EOSINOPHILS % (AUTO) 0.8 % (0-6); HEMATOCRIT 33.9 % (35.0-45.0); HEMOGLOBIN 10.6 g/dl (12.0-16.0); LYMPHOCYTES # (AUTO) 1.6 X10'3 (1.1-4.8); LYMPHOCYTES % (AUTO) 25.1 % (21-51); MEAN CORPUSCULAR HEMOGLOBIN 18.9 PG (27.0-31.0); MEAN CORPUSCULAR HGB CONC 31.2 g/dL (33.0-36.5); MEAN CORPUSCULAR VOLUME 60.5 FL (78-98); MONOCYTES # (AUTO) 0.4 X10'3 (0-0.9); MONOCYTES % (AUTO) 5.7 % (2-12); NEUTROPHILS # (AUTO) 4.4 X10'3 (1.8-7.7); NEUTROPHILS % (AUTO) 67.4 % (42-75); PLATELET COUNT 188 X10'3 (140-440); RED BLOOD COUNT 5.61 X10'6 (4.20-5.60); RED CELL DISTRIBUTION WIDTH 15.5 % (11.5-14.5); WHITE BLOOD COUNT 6.5 X10'3 (4.5-11.0)
[2019-12-21 19:53] LABS: ALANINE AMINOTRANSFERASE 16 U/L (12-78); ALBUMIN 3.1 G/DL (3.4-5.0); ALBUMIN/GLOBULIN RATIO 0.9 (1.1-1.5); ALKALINE PHOSPHATASE 97 IU/L (46-116); ANION GAP 8 (8-16); ASPARTATE AMINO TRANSFERASE 19 U/L (10-37); BILIRUBIN,TOTAL 0.4 MG/DL (0.1-1.0); BLOOD UREA NITROGEN 54 MG/DL (7-18); BUN/CREATININE RATIO 27.7 (6.6-38.0); CALCIUM 8.5 MG/DL (8.5-10.1); CHLORIDE 108 MMOL/L (99-107); CREATININE 1.95 MG/DL (0.40-0.90); GLUCOSE 140 MG/DL (70-104); POTASSIUM 3.7 MMOL/L (3.5-5.1); SODIUM 143 MMOL/L (135-145); TOTAL CARBON DIOXIDE 26.6 MMOL/L (24-32); TOTAL PROTEIN 6.4 G/DL (6.4-8.2); eGFR 25 ML/MIN
[2019-12-21 19:54] LABS: COLOR,URINE YELLOW (Yellow); GLUCOSE, URINE NEGATIVE (Neg); KETONES,URINE NEGATIVE (Neg); LEUKOCYTE ESTERASE ,URINE TRACE (Neg); NITRITES, URINE NEGATIVE (Neg); OCCULT BLOOD,URINE NEGATIVE (Neg); PH,URINE 5.5 (4.8-8.0); PROTEIN,URINE 100 mg/dl (Neg); UROBILINOGEN,URINE 0.2 E.U/dL (0.2-1.0)
[2019-12-21 19:58] LABS: UA COLLECTION TYPE CLN CATCH MIDSTREAM
[2019-12-21 19:59] LABS: CLARITY,URINE SLIGHTLY CLOUDY (Clear)
[2019-12-21 20:09] LABS: BACTERIA,URINE FEW /HPF (Neg); MUCUS STRANDS NONE SEEN /LPF (Neg); RBC,URINE 0-2 /HPF (0-2); SQUAMOUS EPITHELIAL CELL,UR FEW /LPF (FEW)
--- NOTE | 2019-12-21 20:54 | NUR ---
Patient IV fluids started. NaC. 500ml bolus.
[2019-12-21 22:08] LABS: MICROCYTOSIS 2+; PLATELET ESTIMATE NORMAL
[2019-12-21 22:09] LABS: ELLIPTOCYTES 1+; TARGET CELLS FEW
[2019-12-21] MEDS ORDERED: magnesium 2GM in 50ml NS 50 ML IV PRN (22:25)
[2019-12-21] MEDS ORDERED: potassium CL 10mEq/100ml bag 100 ML IV PRN ×2 (22:25)
[2019-12-21] MEDS ORDERED: magnesium 4gm in 100ml NS 100 ML IV PRN (22:25)
[2019-12-21] MEDS ORDERED: acetaminophen 325mg tablet PO PRN (22:25)
[2019-12-21] MEDS ORDERED: bisacodyl 10mg suppository rectal RC PRN (22:25)
[2019-12-21] MEDS ORDERED: mag hydrox/Alum hydrox/simeth 30ml oral suspension PO PRN (22:25)
[2019-12-21] MEDS ORDERED: magnesium hydroxide 30ml (MOM) UD suspension PO PRN (22:25)
[2019-12-21] MEDS ORDERED: magnesium Cl slow-release 64mg tablet PO PRN (22:25)
[2019-12-21] MEDS ORDERED: potassium Cl 20 mEq SR tablet PO PRN (22:25)
[2019-12-21] MEDS ORDERED: dextrose ORAL solution 15 GM/59 ML bottle PO PRN (22:50)
[2019-12-21] MEDS ORDERED: dextrose 50%-water 50ml dispensing syringe IV PRN ×2 (22:50)
[2019-12-21] MEDS ORDERED: MESSAGE TO PHARMACY PO ONE (22:50)
[2019-12-21] MEDS ORDERED: glucagon, human recombinant 1mg kit SUBCUT PRN (22:50)
[2019-12-21] MEDS ORDERED: insulin Lispro (HumaLOG) vial - multi-dose SQ SCH (22:50)
--- NOTE | 2019-12-21 23:39 | NUR ---
Patient is awake and resting quietly. Low fowlers position in bed.
[2019-12-22] VITALS (8 sets, daily range): BP systolic 164–182; BP diastolic 83–100
--- NOTE | 2019-12-22 00:31 | NUR ---
Report to BENJAMIN Waddell. Patient will be admitted to room 349 A in approximately 20 minutes.
--- NOTE | 2019-12-22 01:04 | NUR ---
Patient is being transfered to room 349 A. Report to Pat RN. Patient is being transfered by wheelchair.
--- NOTE | 2019-12-22 01:30 | NUR ---
pt states "yes" when asked if in pain; body language does not show reflect what pt states... Addendum: 12/22/19 at 0410 by Brenda Garcia RN Amended: Links added.
[2019-12-22] MEDS: hydrALAZINE 25 MG tablet PO SCH ×3 (01:46→17:21)
[2019-12-22] MEDS: normal saline 1000ml 1,000 ML IV SCH ×3 (01:59→18:23)
[2019-12-22 05:15] LABS: BASOPHILS % (AUTO) 0.5 % (0-1); EOSINOPHILS # (AUTO) 0.1 X10'3 (0-0.9); EOSINOPHILS % (AUTO) 0.9 % (0-6); HEMATOCRIT 30.6 % (35.0-45.0); HEMOGLOBIN 9.5 g/dl (12.0-16.0); LYMPHOCYTES # (AUTO) 1.8 X10'3 (1.1-4.8); LYMPHOCYTES % (AUTO) 29.2 % (21-51); MEAN CORPUSCULAR HEMOGLOBIN 18.9 PG (27.0-31.0); MEAN CORPUSCULAR HGB CONC 31.1 g/dL (33.0-36.5); MEAN CORPUSCULAR VOLUME 60.8 FL (78-98); MEAN PLATELET VOLUME 9.5 FL (7.4-10.4); MONOCYTES # (AUTO) 0.3 X10'3 (0-0.9); MONOCYTES % (AUTO) 5.6 % (2-12); NEUTROPHILS # (AUTO) 3.9 X10'3 (1.8-7.7); NEUTROPHILS % (AUTO) 63.8 % (42-75); PLATELET COUNT 175 X10'3 (140-440); RED BLOOD COUNT 5.03 X10'6 (4.20-5.60); RED CELL DISTRIBUTION WIDTH 15.6 % (11.5-14.5); WHITE BLOOD COUNT 6.1 X10'3 (4.5-11.0)
[2019-12-22 05:34] LABS: ALANINE AMINOTRANSFERASE 15 U/L (12-78); ALBUMIN 2.9 G/DL (3.4-5.0); ALKALINE PHOSPHATASE 87 IU/L (46-116); ANION GAP 9 (8-16); ASPARTATE AMINO TRANSFERASE 17 U/L (10-37); BILIRUBIN,TOTAL 0.3 MG/DL (0.1-1.0); BLOOD UREA NITROGEN 47 MG/DL (7-18); BUN/CREATININE RATIO 27.3 (6.6-38.0); CALCIUM 9.1 MG/DL (8.5-10.1); CHLORIDE 112 MMOL/L (99-107); CREATININE 1.72 MG/DL (0.40-0.90); GLUCOSE 75 MG/DL (70-104); MAGNESIUM 2.3 MG/DL (1.5-2.4); POTASSIUM 3.2 MMOL/L (3.5-5.1); SODIUM 145 MMOL/L (135-145); TOTAL PROTEIN 5.9 G/DL (6.4-8.2); eGFR 28 ML/MIN
[2019-12-22] MEDS: dextrose ORAL solution 15 GM/59 ML bottle PO PRN (07:02)
--- NOTE | 2019-12-22 07:14 | NUR ---
Patient in room [facility]. I have received report from pat Rn and had the opportunity to ask questions and assume patient care.
[2019-12-22] MEDS: glipizide 5mg tablet PO SCH ×2 (08:00→21:50)
[2019-12-22] MEDS: potassium chloride 8mEq ER tablet PO SCH (08:00)
[2019-12-22] MEDS: K and/or MAG REPLACEMENT MC SCH ×2 (08:00→20:00)
[2019-12-22] MEDS: docusate sod 100mg capsule PO SCH ×2 (08:08→21:50)
[2019-12-22] MEDS: losartan 50mg tablet PO SCH (08:09)
[2019-12-22] MEDS: potassium Cl 20 mEq SR tablet PO PRN ×3 (08:09→21:53)
[2019-12-22] MEDS: furosemide 20MG tablet PO SCH (08:09)
[2019-12-22] MEDS: apixaban 2.5mg tablet PO SCH ×2 (08:10→21:51)
[2019-12-22] MEDS: atorvastatin 20mg tablet PO SCH (08:10)
[2019-12-22] MEDS: sertraline 50mg tablet PO SCH (08:10)
[2019-12-22] MEDS: digoxin 125mcg (0.125mg) tablet PO SCH (08:11)
[2019-12-22] MEDS: protein shake 8oz. (237ml) PO SCH ×3 (08:22→18:00)
[2019-12-22 12:25] LABS: % IRON SATURATION 44 % (11-46); IRON 80 UG/DL (49-151); TOTAL IRON BINDING CAPACITY 183 UG/DL (259-388)
[2019-12-22 12:28] LABS: FERRITIN 74 NG/ML (8-252)
[2019-12-22] MEDS ORDERED: LORazepam 2 mg/ml vial IV ONE (14:05)
[2019-12-22] MEDS: CefTRIAXone/D5W-Rocephin 1gm 50 ML IV SCH (17:40)
[2019-12-22] MEDS ORDERED: aspirin 325mg tablet PO ONE (18:00)
--- NOTE | 2019-12-22 18:45 | NUR ---
Patient in room [facility] 355. I have received report from Fouzia ALEXANDER and had the opportunity to ask questions and assume patient care.
--- NOTE | 2019-12-22 18:59 | NUR ---
Shailesh neurology [facility] request - done per Dr. dobbins. Success A new connect request was successfully created for: Kenia Awan : 1935 ConnectID: [id number] REASON: Abnormal Imaging ACUITY: Acuity Level 4 SUBMITTED: 12/22/2019 18:59 PDT
--- NOTE | 2019-12-22 20:02 | NUR ---
Problems reprioritized. Patient report given, questions answered & plan of care reviewed with Vicky Russell.
[2019-12-22] MEDS: insulin glargine (Lantus) pen - multi-dose SQ SCH (21:00)
[2019-12-22] MEDS: acetaminophen 325mg tablet PO PRN (21:52)
[2019-12-23] VITALS (9 sets, daily range): BP systolic 106–185; BP diastolic 67–95
--- NOTE | 2019-12-23 02:50 | NUR ---
Patient moved from room 349B to 355A.
[2019-12-23] MEDS: normal saline 1000ml 1,000 ML IV SCH ×2 (02:53→14:23)
[2019-12-23] MEDS: hydrALAZINE 20mg/ml inj. IV PRN (02:54)
--- NOTE | 2019-12-23 03:06 | NUR ---
Patient has just been given PRN hydralazine for elevated BP 185/95 , HR 87. Patient was sleeping earlier and had not received the scheduled dose of PO hydralazine at midnight. Will recheck BP in one hour.
[2019-12-23 07:00] LABS: ALANINE AMINOTRANSFERASE 14 U/L (12-78); ALBUMIN 2.9 G/DL (3.4-5.0); ALBUMIN/GLOBULIN RATIO 0.9 (1.1-1.5); ALKALINE PHOSPHATASE 90 IU/L (46-116); ANION GAP 14 (8-16); ASPARTATE AMINO TRANSFERASE 18 U/L (10-37); BILIRUBIN,TOTAL 0.3 MG/DL (0.1-1.0); BLOOD UREA NITROGEN 34 MG/DL (7-18); BUN/CREATININE RATIO 22.4 (6.6-38.0); CALCIUM 8.7 MG/DL (8.5-10.1); CHLORIDE 111 MMOL/L (99-107); CHOL/HDL RATIO 2.5 (0.00-4.99); CHOLESTEROL 109 MG/DL (0-200); CREATININE 1.52 MG/DL (0.40-0.90); GLUCOSE 71 MG/DL (70-104); HDL CHOLESTEROL 43 MG/DL (35-60); LDL CHOLESTEROL 45 MG/DL (50-100); MAGNESIUM 1.8 MG/DL (1.5-2.4); POTASSIUM 3.5 MMOL/L (3.5-5.1); SODIUM 146 MMOL/L (135-145); TOTAL CARBON DIOXIDE 21.5 MMOL/L (24-32); TRIGLYCERIDES 102 MG/DL (20-135); eGFR 33 ML/MIN
[2019-12-23 07:01] LABS: BASOPHILS % (AUTO) 0.6 % (0-1); EOSINOPHILS # (AUTO) 0.1 X10'3 (0-0.9); EOSINOPHILS % (AUTO) 1.1 % (0-6); HEMATOCRIT 30.3 % (35.0-45.0); HEMOGLOBIN 9.8 g/dl (12.0-16.0); LYMPHOCYTES # (AUTO) 1.5 X10'3 (1.1-4.8); LYMPHOCYTES % (AUTO) 24.7 % (21-51); MEAN CORPUSCULAR HEMOGLOBIN 19.6 PG (27.0-31.0); MEAN CORPUSCULAR HGB CONC 32.3 g/dL (33.0-36.5); MEAN CORPUSCULAR VOLUME 60.7 FL (78-98); MEAN PLATELET VOLUME 9.6 FL (7.4-10.4); MONOCYTES # (AUTO) 0.3 X10'3 (0-0.9); MONOCYTES % (AUTO) 5.1 % (2-12); NEUTROPHILS # (AUTO) 4.2 X10'3 (1.8-7.7); NEUTROPHILS % (AUTO) 68.5 % (42-75); PLATELET COUNT 167 X10'3 (140-440); RED CELL DISTRIBUTION WIDTH 15.8 % (11.5-14.5); WHITE BLOOD COUNT 6.1 X10'3 (4.5-11.0)
[2019-12-23] MEDS: dextrose ORAL solution 15 GM/59 ML bottle PO PRN (07:01)
--- NOTE | 2019-12-23 07:06 | NUR ---
Patient in room [facility] 355. I have received report from Vicky ALEXANDER and had the opportunity to ask questions and assume patient care.
--- NOTE | 2019-12-23 07:09 | NUR ---
Problems reprioritized. Patient report given, questions answered & plan of care reviewed with Fouzia ALEXANDER.
[2019-12-23 07:27] LABS: PLATELET ESTIMATE NORMAL
[2019-12-23 07:28] LABS: ANISOCYTOSIS 2+; HYPOCHROMASIA 2+
[2019-12-23 07:29] LABS: ROULEAUX 1+
[2019-12-23] MEDS: glipizide 5mg tablet PO SCH (08:00)
[2019-12-23] MEDS: K and/or MAG REPLACEMENT MC SCH ×2 (08:00→20:00)
[2019-12-23] MEDS ORDERED: atorvastatin 20mg tablet PO SCH (08:00)
[2019-12-23] MEDS: potassium chloride 8mEq ER tablet PO SCH (08:03)
[2019-12-23] MEDS: furosemide 20MG tablet PO SCH (08:03)
[2019-12-23] MEDS: aspirin 81mg tablet.DR PO SCH (08:03)
[2019-12-23] MEDS: sertraline 50mg tablet PO SCH (08:04)
[2019-12-23] MEDS: losartan 50mg tablet PO SCH (08:04)
[2019-12-23] MEDS: docusate sod 100mg capsule PO SCH ×2 (08:04→21:17)
[2019-12-23] MEDS: apixaban 2.5mg tablet PO SCH ×2 (08:04→21:17)
[2019-12-23] MEDS: hydrALAZINE 25 MG tablet PO SCH ×4 (08:04→23:57)
[2019-12-23] MEDS: digoxin 125mcg (0.125mg) tablet PO SCH (08:05)
[2019-12-23] MEDS: CefTRIAXone/D5W-Rocephin 1gm 50 ML IV SCH (08:05)
[2019-12-23] MEDS: protein shake 8oz. (237ml) PO SCH ×3 (08:07→18:00)
--- NOTE | 2019-12-23 18:50 | NUR ---
Patient in room [facility] 355. I have received report from Fouzia ALEXANDER and had the opportunity to ask questions and assume patient care.
--- NOTE | 2019-12-23 18:50 | NUR ---
Problems reprioritized. Patient report given, questions answered & plan of care reviewed with Vicky Russell.
[2019-12-23] MEDS: insulin glargine (Lantus) pen - multi-dose SQ SCH (21:00)
[2019-12-23] MEDS: acetaminophen 325mg tablet PO PRN (21:18)
[2019-12-24] MEDS: normal saline 1000ml 1,000 ML IV SCH ×2 (01:41→22:30)
--- NOTE | 2019-12-24 03:33 | NUR ---
Patient was showered on 12/22 during day shift Addendum: 12/24/19 at 0346 by Vicky Cabrera RN Amended: Links added.
[2019-12-24 04:00] VITALS: BP 168/91
--- NOTE | 2019-12-24 05:46 | NUR ---
Unable to assess as language barrier, patient apparently speaks mien. Addendum: 12/24/19 at 0546 by Vicky Cabrera RN Amended: Links added.
[2019-12-24 06:03] LABS: BASOPHILS % (AUTO) 0.5 % (0-1); EOSINOPHILS # (AUTO) 0.1 X10'3 (0-0.9); EOSINOPHILS % (AUTO) 1.4 % (0-6); HEMATOCRIT 30.1 % (35.0-45.0); HEMOGLOBIN 9.5 g/dl (12.0-16.0); LYMPHOCYTES # (AUTO) 1.4 X10'3 (1.1-4.8); LYMPHOCYTES % (AUTO) 24.6 % (21-51); MEAN CORPUSCULAR HEMOGLOBIN 19.2 PG (27.0-31.0); MEAN CORPUSCULAR HGB CONC 31.6 g/dL (33.0-36.5); MEAN CORPUSCULAR VOLUME 60.6 FL (78-98); MEAN PLATELET VOLUME 9.4 FL (7.4-10.4); MONOCYTES # (AUTO) 0.4 X10'3 (0-0.9); MONOCYTES % (AUTO) 7.5 % (2-12); NEUTROPHILS # (AUTO) 3.6 X10'3 (1.8-7.7); PLATELET COUNT 161 X10'3 (140-440); RED BLOOD COUNT 4.96 X10'6 (4.20-5.60); RED CELL DISTRIBUTION WIDTH 15.4 % (11.5-14.5); WHITE BLOOD COUNT 5.5 X10'3 (4.5-11.0)
--- NOTE | 2019-12-24 06:15 | NUR ---
Problems reprioritized. Patient report given, questions answered & plan of care reviewed with Fouzia ALEXANDER.
[2019-12-24 06:32] LABS: ALANINE AMINOTRANSFERASE 13 U/L (12-78); ALBUMIN 2.6 G/DL (3.4-5.0); ALBUMIN/GLOBULIN RATIO 0.9 (1.1-1.5); ALKALINE PHOSPHATASE 85 IU/L (46-116); ANION GAP 9 (8-16); ASPARTATE AMINO TRANSFERASE 15 U/L (10-37); BILIRUBIN,TOTAL 0.4 MG/DL (0.1-1.0); BLOOD UREA NITROGEN 27 MG/DL (7-18); BUN/CREATININE RATIO 15.7 (6.6-38.0); CALCIUM 8.1 MG/DL (8.5-10.1); CHLORIDE 113 MMOL/L (99-107); CREATININE 1.72 MG/DL (0.40-0.90); GLUCOSE 104 MG/DL (70-104); MAGNESIUM 1.8 MG/DL (1.5-2.4); POTASSIUM 3.4 MMOL/L (3.5-5.1); SODIUM 144 MMOL/L (135-145); TOTAL CARBON DIOXIDE 21.6 MMOL/L (24-32); TOTAL PROTEIN 5.6 G/DL (6.4-8.2); eGFR 28 ML/MIN
[2019-12-24 06:54] LABS: ANISOCYTOSIS 1+; MICROCYTOSIS 2+; PLATELET ESTIMATE NORMAL
[2019-12-24 06:55] LABS: ELLIPTOCYTES 1+; HYPOCHROMASIA 2+; TARGET CELLS 1+
[2019-12-24 06:56] LABS: SCHISTOCYTES FEW
--- NOTE | 2019-12-24 07:01 | NUR ---
Patient in room [facility] 355. I have received report from Vicky ALEXANDER and had the opportunity to ask questions and assume patient care.
[2019-12-24] MEDS: docusate sod 100mg capsule PO SCH ×2 (07:34→20:00)
[2019-12-24] MEDS: aspirin 81mg tablet.DR PO SCH (07:34)
[2019-12-24] MEDS: potassium chloride 8mEq ER tablet PO SCH (07:34)
[2019-12-24] MEDS: apixaban 2.5mg tablet PO SCH ×2 (07:34→22:29)
[2019-12-24] MEDS: sertraline 50mg tablet PO SCH (07:34)
[2019-12-24] MEDS: furosemide 20MG tablet PO SCH (07:34)
[2019-12-24] MEDS: atorvastatin 10mg tablet PO SCH (07:34)
[2019-12-24] MEDS: CefTRIAXone/D5W-Rocephin 1gm 50 ML IV SCH (07:35)
[2019-12-24] MEDS: digoxin 125mcg (0.125mg) tablet PO SCH (07:36)
[2019-12-24] MEDS: losartan 50mg tablet PO SCH (07:37)
[2019-12-24] MEDS: hydrALAZINE 25 MG tablet PO SCH ×2 (07:37→16:26)
[2019-12-24] MEDS: potassium Cl 20 mEq SR tablet PO PRN (07:41)
[2019-12-24 08:00] VITALS: BP 164/98
[2019-12-24] MEDS: K and/or MAG REPLACEMENT MC SCH ×2 (08:00→20:00)
[2019-12-24] MEDS: protein shake 8oz. (237ml) PO SCH ×3 (08:00→18:00)
[2019-12-24 12:33] VITALS: BP 151/78
--- NOTE | 2019-12-24 17:50 | NUR ---
Pt had a bad day today. Pt constantly stating she wanted to . Dr Gottlieb assessed her and reinstated 1799.11 and sitter orders. Pt will be assess by [facility] right now. Pt's potassium 3.4 and was given 1x 20mEq as part of replacement protocol. Pt refused her 2nd dose. NOC nurse aware of it.
--- NOTE | 2019-12-24 18:32 | NUR ---
Problems reprioritized. Patient report given, questions answered & plan of care reviewed with Vicky ALEXANDER.
--- NOTE | 2019-12-24 18:35 | NUR ---
Patient in room [facility] 355. I have received report from Fouzia ALEXANDER and had the opportunity to ask questions and assume patient care.
[2019-12-24 20:00] VITALS: BP 166/105
[2019-12-24] MEDS: insulin glargine (Lantus) pen - multi-dose SQ SCH (21:00)
[2019-12-25] VITALS: BP 167/100
[2019-12-25] MEDS: hydrALAZINE 25 MG tablet PO SCH ×4 (00:59→23:59)
--- NOTE | 2019-12-25 03:20 | NUR ---
[facility] report is in the front of the patients' chart.
[2019-12-25 06:14] LABS: BASOPHILS % (AUTO) 0.5 % (0-1); EOSINOPHILS % (AUTO) 0.8 % (0-6); HEMATOCRIT 31.5 % (35.0-45.0); HEMOGLOBIN 10.1 g/dl (12.0-16.0); LYMPHOCYTES # (AUTO) 1.4 X10'3 (1.1-4.8); LYMPHOCYTES % (AUTO) 22.7 % (21-51); MEAN CORPUSCULAR HEMOGLOBIN 19.3 PG (27.0-31.0); MEAN CORPUSCULAR HGB CONC 31.9 g/dL (33.0-36.5); MEAN CORPUSCULAR VOLUME 60.4 FL (78-98); MEAN PLATELET VOLUME 9.4 FL (7.4-10.4); MONOCYTES # (AUTO) 0.4 X10'3 (0-0.9); MONOCYTES % (AUTO) 5.9 % (2-12); NEUTROPHILS # (AUTO) 4.3 X10'3 (1.8-7.7); NEUTROPHILS % (AUTO) 70.1 % (42-75); PLATELET COUNT 171 X10'3 (140-440); RED BLOOD COUNT 5.22 X10'6 (4.20-5.60); RED CELL DISTRIBUTION WIDTH 15.5 % (11.5-14.5); WHITE BLOOD COUNT 6.1 X10'3 (4.5-11.0)
--- NOTE | 2019-12-25 06:36 | NUR ---
Problems reprioritized. Patient report given, questions answered & plan of care reviewed with Juli ALEXANDER.
--- NOTE | 2019-12-25 06:37 | NUR ---
Patient in room [facility] 355. I have received report from Vicky ALEXANDER and had the opportunity to ask questions and assume patient care.
[2019-12-25 06:42] LABS: ALANINE AMINOTRANSFERASE 14 U/L (12-78); ALBUMIN 2.8 G/DL (3.4-5.0); ALBUMIN/GLOBULIN RATIO 0.8 (1.1-1.5); ALKALINE PHOSPHATASE 86 IU/L (46-116); ANION GAP 10 (8-16); ASPARTATE AMINO TRANSFERASE 15 U/L (10-37); BILIRUBIN,TOTAL 0.5 MG/DL (0.1-1.0); BLOOD UREA NITROGEN 20 MG/DL (7-18); BUN/CREATININE RATIO 11.4 (6.6-38.0); CALCIUM 8.5 MG/DL (8.5-10.1); CHLORIDE 111 MMOL/L (99-107); CREATININE 1.75 MG/DL (0.40-0.90); GLUCOSE 115 MG/DL (70-104); MAGNESIUM 1.8 MG/DL (1.5-2.4); POTASSIUM 3.4 MMOL/L (3.5-5.1); SODIUM 143 MMOL/L (135-145); TOTAL CARBON DIOXIDE 22.4 MMOL/L (24-32); TOTAL PROTEIN 6.1 G/DL (6.4-8.2); eGFR 28 ML/MIN
[2019-12-25 06:59] LABS: HYPOCHROMASIA 1+; MICROCYTOSIS 2+
[2019-12-25 07:00] VITALS: BP 155/57
[2019-12-25 07:00] LABS: ELLIPTOCYTES FEW; SCHISTOCYTES FEW
[2019-12-25 07:01] LABS: PLATELET ESTIMATE NORMAL; POIKILOCYTOSIS FEW
[2019-12-25 07:02] LABS: ANISOCYTOSIS FEW
[2019-12-25] MEDS: protein shake 8oz. (237ml) PO SCH ×3 (08:00→18:00)
[2019-12-25] MEDS: K and/or MAG REPLACEMENT MC SCH ×2 (08:00→19:13)
[2019-12-25] MEDS: CefTRIAXone/D5W-Rocephin 1gm 50 ML IV SCH (08:33)
[2019-12-25] MEDS: atorvastatin 10mg tablet PO SCH (08:35)
[2019-12-25] MEDS: potassium chloride 8mEq ER tablet PO SCH (08:35)
[2019-12-25] MEDS: losartan 50mg tablet PO SCH (08:35)
[2019-12-25] MEDS: aspirin 81mg tablet.DR PO SCH (08:35)
[2019-12-25] MEDS: furosemide 20MG tablet PO SCH (08:35)
[2019-12-25] MEDS: digoxin 125mcg (0.125mg) tablet PO SCH (08:35)
[2019-12-25] MEDS: docusate sod 100mg capsule PO SCH ×2 (08:35→21:52)
[2019-12-25] MEDS: apixaban 2.5mg tablet PO SCH ×2 (08:35→21:53)
[2019-12-25] MEDS: sertraline 50mg tablet PO SCH (08:36)
[2019-12-25 12:00] VITALS: BP 142/77
--- NOTE | 2019-12-25 18:36 | NUR ---
Problems reprioritized. Patient report given, questions answered & plan of care reviewed with Teri ALEXANDER.
[2019-12-25] MEDS: normal saline 1000ml 1,000 ML IV SCH (19:12)
[2019-12-25 20:00] VITALS: BP 159/93
[2019-12-25] MEDS: insulin glargine (Lantus) pen - multi-dose SQ SCH (21:00)
[2019-12-25] MEDS: lactobacillus rhamnosus 10,000 MMU CELLS/CAPSULE PO SCH (21:53)
[2019-12-26] VITALS: BP 159/93
--- NOTE | 2019-12-26 06:12 | NUR ---
Problems reprioritized. Patient report given, questions answered & plan of care reviewed with Patito ALEXANDER.
[2019-12-26 06:49] LABS: BASOPHILS % (AUTO) 0.7 % (0-1); EOSINOPHILS % (AUTO) 0.8 % (0-6); HEMATOCRIT 32.5 % (35.0-45.0); HEMOGLOBIN 10.2 g/dl (12.0-16.0); LYMPHOCYTES # (AUTO) 1.3 X10'3 (1.1-4.8); MEAN CORPUSCULAR HEMOGLOBIN 18.8 PG (27.0-31.0); MEAN CORPUSCULAR HGB CONC 31.3 g/dL (33.0-36.5); MEAN PLATELET VOLUME 9.2 FL (7.4-10.4); MONOCYTES # (AUTO) 0.3 X10'3 (0-0.9); NEUTROPHILS # (AUTO) 3.8 X10'3 (1.8-7.7); NEUTROPHILS % (AUTO) 69.5 % (42-75); PLATELET COUNT 177 X10'3 (140-440); RED BLOOD COUNT 5.42 X10'6 (4.20-5.60); RED CELL DISTRIBUTION WIDTH 15.5 % (11.5-14.5); WHITE BLOOD COUNT 5.5 X10'3 (4.5-11.0)
--- NOTE | 2019-12-26 06:50 | NUR ---
Patient in room [facility] 355. I have received report from Teri ALEXANDER and had the opportunity to ask questions and assume patient care.
[2019-12-26 07:00] VITALS: BP 162/82
[2019-12-26 07:15] LABS: ALANINE AMINOTRANSFERASE 15 U/L (12-78); ALBUMIN 3.2 G/DL (3.4-5.0); ALBUMIN/GLOBULIN RATIO 0.9 (1.1-1.5); ALKALINE PHOSPHATASE 88 IU/L (46-116); ANION GAP 11 (8-16); ASPARTATE AMINO TRANSFERASE 17 U/L (10-37); BILIRUBIN,TOTAL 0.6 MG/DL (0.1-1.0); BLOOD UREA NITROGEN 19 MG/DL (7-18); BUN/CREATININE RATIO 10.8 (6.6-38.0); CALCIUM 8.8 MG/DL (8.5-10.1); CHLORIDE 108 MMOL/L (99-107); CREATININE 1.76 MG/DL (0.40-0.90); GLUCOSE 102 MG/DL (70-104); MAGNESIUM 1.7 MG/DL (1.5-2.4); POTASSIUM 3.1 MMOL/L (3.5-5.1); SODIUM 142 MMOL/L (135-145); TOTAL PROTEIN 6.6 G/DL (6.4-8.2); eGFR 28 ML/MIN
[2019-12-26] MEDS: CefTRIAXone/D5W-Rocephin 1gm 50 ML IV SCH (07:52)
[2019-12-26] MEDS: potassium chloride 8mEq ER tablet PO SCH (07:53)
[2019-12-26] MEDS: apixaban 2.5mg tablet PO SCH ×2 (07:53→21:44)
[2019-12-26] MEDS: digoxin 125mcg (0.125mg) tablet PO SCH (07:53)
[2019-12-26] MEDS: sertraline 50mg tablet PO SCH (07:53)
[2019-12-26] MEDS: hydrALAZINE 25 MG tablet PO SCH ×2 (07:53→16:47)
[2019-12-26] MEDS: atorvastatin 10mg tablet PO SCH (07:53)
[2019-12-26] MEDS: docusate sod 100mg capsule PO SCH ×2 (07:53→21:45)
[2019-12-26] MEDS: lactobacillus rhamnosus 10,000 MMU CELLS/CAPSULE PO SCH ×2 (07:53→21:44)
[2019-12-26] MEDS: losartan 50mg tablet PO SCH (07:53)
[2019-12-26] MEDS: aspirin 81mg tablet.DR PO SCH (07:54)
[2019-12-26] MEDS: furosemide 20MG tablet PO SCH (07:54)
[2019-12-26 07:56] LABS: ELLIPTOCYTES 1+; HYPOCHROMASIA 1+; MICROCYTOSIS 2+; PLATELET ESTIMATE NORMAL
[2019-12-26 07:57] LABS: POIKILOCYTOSIS FEW; SCHISTOCYTES FEW
[2019-12-26] MEDS: K and/or MAG REPLACEMENT MC SCH ×2 (08:00→19:18)
[2019-12-26] MEDS: protein shake 8oz. (237ml) PO SCH ×3 (08:00→18:00)
[2019-12-26 11:00] VITALS: BP 134/86
[2019-12-26] MEDS: normal saline 1000ml 1,000 ML IV SCH (14:45)
--- NOTE | 2019-12-26 14:53 | NUR ---
PAGER ID: [phone] MESSAGE: Surgical Flr Juli ALEXANDER ext [phone]. RE: Kenia Awan. K is 3.1 today, can we get replacement order?
--- NOTE | 2019-12-26 14:59 | NUR ---
DM consult: Pt with A1c 5.4%, DM education not warranted at this time. Pt admit for KHUSHI with deconditioning and weakness. Pt initially brought to the ED for "lack of will to live" with c/o wanting to diet per H&P. Pt previously on a 1798 hold with a sitter however sitter has been discontinued. Pt on a CHO controlled diet with poor PO intake, documented to be averaging 25-50% PO intake with occasional 100% PO intake however has been refusing meals since dinner 12/23. No documentation of PO intake today, per RN pt with a low appetite and only consumed about 10% of her lunch. Pt has been refusing all Glen shakes TID since it was ordered in ED 12/16. Current ONS not appropriate for pt at this time given pt with no wounds. D/w RN recommendation for diet liberalization to regular given poor PO intake and A1c of 5.4% and recommendation to discontinue ONS, all with MD approval. Pt currently documented as A/O x 2, depressed, and agitated, all likely impacting PO intake. Will trial some nutrition interventions in hopes of optimizing PO intake, see below. LBM 12/22, receiving routine bowel care. Will continue to follow closely. Recommendations: 1) Advance to regular diet in view of poor PO intake and A1c 5.4% 2) Discontinue Glen shake TID given not appropriate for pt and pt refusing 3) Trial: oatmeal, fresh fruit, eggs, rice, and fruit a smoothie with meals 4) Routine bowel care 5) Scaled weights per rx Addendum: 12/26/19 at [address] Amended: Links added.
[2019-12-26 18:15] VITALS: BP 130/69
--- NOTE | 2019-12-26 18:58 | NUR ---
Patient in room [facility] 355. I have received report from BENJAMIN Bustos and had the opportunity to ask questions and assume patient care.
[2019-12-26] MEDS ORDERED: magnesium 4gm in 100ml NS 100 ML IV PRN (19:25)
[2019-12-26] MEDS ORDERED: magnesium Cl slow-release 64mg tablet PO PRN (19:25)
[2019-12-26] MEDS ORDERED: potassium CL 10mEq/100ml bag 100 ML IV PRN (19:25)
[2019-12-26] MEDS: potassium Cl 20 mEq SR tablet PO PRN (21:44)
[2019-12-27] VITALS: BP 160/80
[2019-12-27] MEDS: hydrALAZINE 25 MG tablet PO SCH ×3 (00:12→17:02)
[2019-12-27] MEDS: potassium Cl 20 mEq SR tablet PO PRN ×2 (01:34→07:40)
--- NOTE | 2019-12-27 06:30 | NUR ---
Problems reprioritized. Patient report given, questions answered & plan of care reviewed with BENJAMIN Ag.
--- NOTE | 2019-12-27 06:30 | NUR ---
Patient in room [facility] 355. I have received report from DARLENE ALEXANDER and had the opportunity to ask questions and assume patient care.
[2019-12-27 07:00] VITALS: BP 147/77
[2019-12-27] MEDS: sertraline 50mg tablet PO SCH (07:38)
[2019-12-27] MEDS: losartan 50mg tablet PO SCH (07:38)
[2019-12-27] MEDS: atorvastatin 10mg tablet PO SCH (07:38)
[2019-12-27] MEDS: lactobacillus rhamnosus 10,000 MMU CELLS/CAPSULE PO SCH ×2 (07:38→20:09)
[2019-12-27] MEDS: aspirin 81mg tablet.DR PO SCH (07:38)
[2019-12-27] MEDS: apixaban 2.5mg tablet PO SCH ×2 (07:38→20:12)
[2019-12-27] MEDS: digoxin 125mcg (0.125mg) tablet PO SCH (07:39)
[2019-12-27] MEDS: docusate sod 100mg capsule PO SCH ×2 (07:40→16:55)
[2019-12-27] MEDS: K and/or MAG REPLACEMENT MC SCH ×2 (07:47→20:00)
[2019-12-27] MEDS: protein shake 8oz. (237ml) PO SCH ×4 (08:00→18:29)
[2019-12-27] MEDS: normal saline 1000ml 1,000 ML IV SCH (12:02)
[2019-12-27 12:17] VITALS: BP 127/60
--- NOTE | 2019-12-27 15:50 | NUR ---
RECD A CALL FROM THALIA (MARVIN AGNIESZKA). SHE WAS WANTING AN UPDATE ON PT. I EXPLAINED THAT DUE TO PRIVACY RESTRICTIONS I COULD NOT DISCUSS PT WITH HER. I NOTIFIED WIN ASHOK, GAVE HER THE PHONE NUMBER, STATES SHE WILL MAKE CONTACT. Addendum: 12/27/19 at 1553 by Hansa Zhang RN PH NUMBER FOR THALIA [phone]
[2019-12-27 16:59] VITALS: BP 161/85
[2019-12-27 18:00] VITALS: BP 157/71
--- NOTE | 2019-12-27 18:00 | NUR ---
Patient in room [facility] 355. I have received report from Kimberli ALEXANDER and had the opportunity to ask questions and assume patient care. Addendum: 12/27/19 at 1850 by Urmila Riggins RN Amended: Links added.
--- NOTE | 2019-12-27 18:30 | NUR ---
Problems reprioritized. Patient report given, questions answered & plan of care reviewed with ARJUN ALEXANDER.
--- NOTE | 2019-12-27 19:58 | NUR ---
Pt. awake confused to place and day alert to own name. Pt. reoriented. No s/so hypoglycemic episodes at this time. Call light within reach. Addendum: 12/27/19 at 2001 by Urmila Riggins RN Amended: Links added.
[2019-12-28] VITALS: BP 144/81
[2019-12-28] MEDS: hydrALAZINE 25 MG tablet PO SCH ×3 (00:07→17:21)
--- NOTE | 2019-12-28 06:00 | NUR ---
Patient report given, questions answered & plan of care reviewed with Denise ALEXANDER. Addendum: 12/28/19 at 0653 by Urmila Riggins RN Amended: Links added.
[2019-12-28 06:11] LABS: MAGNESIUM 1.6 MG/DL (1.5-2.4); POTASSIUM 3.2 MMOL/L (3.5-5.1)
--- NOTE | 2019-12-28 06:38 | NUR ---
Patient in room [facility] 355. I have received report from BENJAMIN Kearns and had the opportunity to ask questions and assume patient care.
[2019-12-28 07:00] VITALS: BP 168/89
[2019-12-28] MEDS: apixaban 2.5mg tablet PO SCH ×2 (07:34→20:31)
[2019-12-28] MEDS: docusate sod 100mg capsule PO SCH (07:35)
[2019-12-28] MEDS: sertraline 50mg tablet PO SCH (07:35)
[2019-12-28] MEDS: losartan 50mg tablet PO SCH (07:35)
[2019-12-28] MEDS: digoxin 125mcg (0.125mg) tablet PO SCH (07:36)
[2019-12-28] MEDS: lactobacillus rhamnosus 10,000 MMU CELLS/CAPSULE PO SCH ×2 (07:37→20:31)
[2019-12-28] MEDS: atorvastatin 10mg tablet PO SCH (07:37)
[2019-12-28] MEDS: normal saline 1000ml 1,000 ML IV SCH (07:41)
[2019-12-28] MEDS: K and/or MAG REPLACEMENT MC SCH ×2 (07:43→20:35)
[2019-12-28] MEDS: potassium Cl 20 mEq SR tablet PO PRN ×3 (07:43→20:31)
[2019-12-28] MEDS: acetaminophen 325mg tablet PO PRN (07:50)
[2019-12-28] MEDS: protein shake 8oz. (237ml) PO SCH ×2 (08:00→13:00)
[2019-12-28 09:09] LABS: EOSINOPHILS # (AUTO) 0.1 X10'3 (0-0.9); MEAN CORPUSCULAR HEMOGLOBIN 18.8 PG (27.0-31.0); MEAN PLATELET VOLUME 8.5 FL (7.4-10.4); RED BLOOD COUNT 5.12 X10'6 (4.20-5.60); WHITE BLOOD COUNT 4.9 X10'3 (4.5-11.0)
[2019-12-28 09:10] LABS: BASOPHILS % (AUTO) 0.4 % (0-1); EOSINOPHILS % (AUTO) 1.5 % (0-6); HEMATOCRIT 30.8 % (35.0-45.0); HEMOGLOBIN 9.6 g/dl (12.0-16.0); LYMPHOCYTES # (AUTO) 1.3 X10'3 (1.1-4.8); LYMPHOCYTES % (AUTO) 25.5 % (21-51); MEAN CORPUSCULAR HGB CONC 31.3 g/dL (33.0-36.5); MEAN CORPUSCULAR VOLUME 60.2 FL (78-98); MONOCYTES # (AUTO) 0.4 X10'3 (0-0.9); MONOCYTES % (AUTO) 7.8 % (2-12); NEUTROPHILS # (AUTO) 3.2 X10'3 (1.8-7.7); NEUTROPHILS % (AUTO) 64.8 % (42-75); PLATELET COUNT 182 X10'3 (140-440); RED CELL DISTRIBUTION WIDTH 15.4 % (11.5-14.5)
[2019-12-28 09:19] LABS: ANION GAP 10 (8-16); BLOOD UREA NITROGEN 19 MG/DL (7-18); BUN/CREATININE RATIO 10.5 (6.6-38.0); CALCIUM 8.5 MG/DL (8.5-10.1); CHLORIDE 106 MMOL/L (99-107); CREATININE 1.81 MG/DL (0.40-0.90); GLUCOSE 145 MG/DL (70-104); SODIUM 140 MMOL/L (135-145); TOTAL CARBON DIOXIDE 24.3 MMOL/L (24-32); eGFR 27 ML/MIN
[2019-12-28 09:34] LABS: ELLIPTOCYTES 1+; HYPOCHROMASIA 1+; MICROCYTOSIS 2+; PLATELET ESTIMATE NORMAL; TARGET CELLS FEW; TEAR DROP CELLS FEW
[2019-12-28 09:35] LABS: SCHISTOCYTES FEW
[2019-12-28 11:00] VITALS: BP 157/59
[2019-12-28 17:22] VITALS: BP 173/89
[2019-12-28 18:00] VITALS: BP 142/70
--- NOTE | 2019-12-28 18:00 | NUR ---
Patient in room [facility] 355. I have received report from Denise ALEXANDER and had the opportunity to ask questions and assume patient care. Addendum: 12/28/19 at 1827 by Urmila Riggins RN Amended: Links added.
--- NOTE | 2019-12-28 18:14 | NUR ---
Problems reprioritized. Patient report given, questions answered & plan of care reviewed with BENJAMIN Kearns.
--- NOTE | 2019-12-28 19:33 | NUR ---
Pt. sitting up in bed awake denies c/o pain at this time. reminded pt. to call for help. Call light within reach and bed in low position. Addendum: 12/28/19 at 1935 by Urmila Riggins RN Amended: Links added.
[2019-12-29] VITALS: BP 157/85
[2019-12-29] MEDS: hydrALAZINE 25 MG tablet PO SCH ×3 (01:46→15:33)
[2019-12-29] MEDS: normal saline 1000ml 1,000 ML IV SCH ×2 (03:56→22:00)
[2019-12-29] MEDS: potassium Cl 20 mEq SR tablet PO PRN (04:47)
--- NOTE | 2019-12-29 06:00 | NUR ---
Patient report given, questions answered & plan of care reviewed with Ericka ALEXANDER . Addendum: 12/29/19 at 0712 by Urmila Riggins RN Amended: Links added.
--- NOTE | 2019-12-29 06:32 | NUR ---
Patient in room [facility] 355. I have received report from Urmila ALEXANDER and had the opportunity to ask questions and assume patient care.
[2019-12-29] MEDS: losartan 50mg tablet PO SCH (07:55)
[2019-12-29] MEDS: atorvastatin 10mg tablet PO SCH (07:55)
[2019-12-29] MEDS: digoxin 125mcg (0.125mg) tablet PO SCH (07:55)
[2019-12-29] MEDS: lactobacillus rhamnosus 10,000 MMU CELLS/CAPSULE PO SCH ×2 (07:56→21:18)
[2019-12-29] MEDS: docusate sod 100mg capsule PO SCH (07:56)
[2019-12-29] MEDS: apixaban 2.5mg tablet PO SCH ×2 (07:56→21:19)
[2019-12-29] MEDS: sertraline 50mg tablet PO SCH (07:56)
[2019-12-29] MEDS: protein shake 8oz. (237ml) PO SCH ×2 (08:00→13:00)
[2019-12-29] MEDS: K and/or MAG REPLACEMENT MC SCH ×2 (08:00→20:00)
[2019-12-29 08:01] VITALS: BP 180/87
--- NOTE | 2019-12-29 09:35 | NUR ---
PAGER ID: [phone] MESSAGE: [id number] Lv, Y A1C 5.2 can we dc her accu checks. Ericka [phone]
--- NOTE | 2019-12-29 10:07 | NUR ---
OK to discontinue Accu checks per MD.
[2019-12-29 11:51] VITALS: BP 150/77
--- NOTE | 2019-12-29 15:10 | NUR ---
Reassessment: Pt PO improving to 75-100% past 3 days still fluctuates but meeting needs at this time up from initial 25-50% w/ refusals. Pt refusing additional bowel care w/ LBM 12/22 receiving routine colace per RN today. DNR and pt does not want treatment has lost will to live following loss of 2018 and is medically cleared for discharge per MD note. Will continue to monitor. Recommendations: 1) Advance to regular diet in view of poor PO intake and A1c 5.4% 2) Discontinue protein shake TID given not appropriate for pt; d/w RN 3) continue: oatmeal, fresh fruit, eggs, rice, and fruit a smoothie with meals 4) Routine bowel care 5) Scaled weights per rx Addendum: 12/29/19 at [address] Amended: Links added.
[2019-12-29 18:00] VITALS: BP 186/87
--- NOTE | 2019-12-29 18:08 | NUR ---
Problems reprioritized. Patient report given, questions answered & plan of care reviewed with Cy ALEXANDER.
[2019-12-30] VITALS: BP 178/89
[2019-12-30] MEDS: hydrALAZINE 25 MG tablet PO SCH ×4 (02:09→23:18)
--- NOTE | 2019-12-30 06:08 | NUR ---
Patient in room [facility] 355. I have received report from Cy ALEXANDER and had the opportunity to ask questions and assume patient care. No changes reported from last night.
[2019-12-30] MEDS: K and/or MAG REPLACEMENT MC SCH ×2 (06:47→20:00)
[2019-12-30] MEDS: apixaban 2.5mg tablet PO SCH ×2 (07:47→18:58)
[2019-12-30] MEDS: digoxin 125mcg (0.125mg) tablet PO SCH (07:47)
[2019-12-30] MEDS: docusate sod 100mg capsule PO SCH (07:48)
[2019-12-30] MEDS: lactobacillus rhamnosus 10,000 MMU CELLS/CAPSULE PO SCH ×2 (07:48→18:58)
[2019-12-30] MEDS: atorvastatin 10mg tablet PO SCH (07:48)
[2019-12-30] MEDS: sertraline 50mg tablet PO SCH (07:48)
[2019-12-30] MEDS: losartan 50mg tablet PO SCH (07:48)
[2019-12-30 08:49] VITALS: BP 169/89
[2019-12-30] MEDS: normal saline 1000ml 1,000 ML IV SCH (17:22)
[2019-12-30] MEDS: hydrALAZINE 20mg/ml inj. IV PRN (18:58)
[2019-12-30 19:44] VITALS: BP 206/102
[2019-12-31] VITALS: BP 166/90
--- NOTE | 2019-12-31 06:34 | NUR ---
I have received report from Cy ALEXANDER and had the opportunity to ask questions and assume patient care.
[2019-12-31 07:34] VITALS: BP 180/98
[2019-12-31] MEDS: lactobacillus rhamnosus 10,000 MMU CELLS/CAPSULE PO SCH ×2 (07:47→21:12)
[2019-12-31] MEDS: docusate sod 100mg capsule PO SCH (07:47)
[2019-12-31] MEDS: losartan 50mg tablet PO SCH (07:47)
[2019-12-31] MEDS: apixaban 2.5mg tablet PO SCH ×2 (07:47→21:12)
[2019-12-31] MEDS: hydrALAZINE 25 MG tablet PO SCH ×2 (07:47→16:00)
[2019-12-31] MEDS: atorvastatin 10mg tablet PO SCH (07:48)
[2019-12-31] MEDS: sertraline 50mg tablet PO SCH (07:48)
[2019-12-31] MEDS: digoxin 125mcg (0.125mg) tablet PO SCH (07:48)
[2019-12-31] MEDS: K and/or MAG REPLACEMENT MC SCH ×2 (08:45→20:00)
[2019-12-31 12:00] VITALS: BP 154/86
[2019-12-31] MEDS: normal saline 1000ml 1,000 ML IV SCH (12:23)
[2019-12-31] MEDS: aspirin 81mg tablet.DR PO SCH (12:23)
[2019-12-31] MEDS: cloNIDine 0.1 mg tablet PO SCH (16:00)
--- NOTE | 2019-12-31 18:05 | NUR ---
Problems reprioritized. Patient report given, questions answered & plan of care reviewed with Cy ALEXANDER.
--- NOTE | 2019-12-31 18:12 | NUR ---
Problems reprioritized. Patient report given, questions answered & plan of care reviewed with Cy ALEXANDER.
[2019-12-31 19:41] VITALS: BP 132/77
[2020-01-01] VITALS: BP 155/91
[2020-01-01] MEDS: hydrALAZINE 25 MG tablet PO SCH ×3 (01:03→16:05)
[2020-01-01] MEDS: cloNIDine 0.1 mg tablet PO SCH ×3 (01:03→16:05)
[2020-01-01 07:30] VITALS: BP 163/81
[2020-01-01] MEDS: docusate sod 100mg capsule PO SCH (07:36)
[2020-01-01] MEDS: sertraline 50mg tablet PO SCH (07:37)
[2020-01-01] MEDS: lactobacillus rhamnosus 10,000 MMU CELLS/CAPSULE PO SCH ×2 (07:37→20:56)
[2020-01-01] MEDS: aspirin 81mg tablet.DR PO SCH (07:37)
[2020-01-01] MEDS: atorvastatin 10mg tablet PO SCH (07:37)
[2020-01-01] MEDS: apixaban 2.5mg tablet PO SCH ×2 (07:37→20:56)
[2020-01-01] MEDS: losartan 50mg tablet PO SCH (07:37)
[2020-01-01] MEDS: digoxin 125mcg (0.125mg) tablet PO SCH (07:37)
[2020-01-01] MEDS: K and/or MAG REPLACEMENT MC SCH ×2 (08:00→20:00)
[2020-01-01 08:34] LABS: ALBUMIN 2.9 G/DL (3.4-5.0); ANION GAP 8 (8-16); BLOOD UREA NITROGEN 15 MG/DL (7-18); CALCIUM 8.1 MG/DL (8.5-10.1); CHLORIDE 111 MMOL/L (99-107); CREATININE 1.66 MG/DL (0.40-0.90); GLUCOSE 106 MG/DL (70-104); POTASSIUM 3.6 MMOL/L (3.5-5.1); SODIUM 143 MMOL/L (135-145); TOTAL CARBON DIOXIDE 24.5 MMOL/L (24-32); eGFR 30 ML/MIN
--- NOTE | 2020-01-01 09:31 | NUR ---
Reassessment: Pt continues meeting nutrient needs with average 75-100% PO intake on heart healthy diet. LBM 12/28, receiving routine bowel care. D/w dietary to send prunes/prune juice with next meal to assist with bowel regularity. Will continue to follow and monitor need for further nutrition intervention. Recommendations: 1) Advance to regular diet as medically indicated 2) continue: oatmeal, fresh fruit, eggs, rice, and fruit a smoothie with meals 3) Routine bowel care 4) Scaled weights per rx Addendum: 01/01/20 at [address] Amended: Links added.
[2020-01-01 11:33] VITALS: BP 124/71
--- NOTE | 2020-01-01 18:17 | NUR ---
Problems reprioritized. Patient report given, questions answered & plan of care reviewed with BENJAMIN LEMUS.
[2020-01-01 20:00] VITALS: BP 130/68
[2020-01-02] VITALS: BP 143/84
[2020-01-02] MEDS: hydrALAZINE 25 MG tablet PO SCH ×3 (00:22→15:22)
[2020-01-02] MEDS: cloNIDine 0.1 mg tablet PO SCH ×3 (00:22→15:22)
[2020-01-02 07:10] VITALS: BP 150/72
[2020-01-02] MEDS: docusate sod 100mg capsule PO SCH (07:43)
[2020-01-02] MEDS: sertraline 50mg tablet PO SCH (07:43)
[2020-01-02] MEDS: losartan 50mg tablet PO SCH (07:43)
[2020-01-02] MEDS: apixaban 2.5mg tablet PO SCH ×2 (07:44→22:15)
[2020-01-02] MEDS: aspirin 81mg tablet.DR PO SCH (07:44)
[2020-01-02] MEDS: atorvastatin 10mg tablet PO SCH (07:44)
[2020-01-02] MEDS: lactobacillus rhamnosus 10,000 MMU CELLS/CAPSULE PO SCH ×2 (07:44→22:15)
[2020-01-02] MEDS: digoxin 125mcg (0.125mg) tablet PO SCH (07:45)
[2020-01-02] MEDS: K and/or MAG REPLACEMENT MC SCH ×2 (07:46→20:00)
[2020-01-02 11:44] VITALS: BP 116/52
[2020-01-02 15:20] VITALS: BP 150/76
--- NOTE | 2020-01-02 18:31 | NUR ---
Problems reprioritized. Patient report given, questions answered & plan of care reviewed with BENJAMIN LEMUS.
[2020-01-02 20:00] VITALS: BP 150/83
[2020-01-03] MEDS: hydrALAZINE 25 MG tablet PO SCH ×3 (00:49→16:23)
[2020-01-03] MEDS: cloNIDine 0.1 mg tablet PO SCH ×3 (00:49→16:24)
--- NOTE | 2020-01-03 06:48 | NUR ---
Patient in room [facility] 355A. I have received report from BENJAMIN LEMUS and had the opportunity to ask questions and assume patient care.
[2020-01-03 07:00] VITALS: BP 162/89
[2020-01-03] MEDS: K and/or MAG REPLACEMENT MC SCH ×2 (08:00→20:03)
[2020-01-03] MEDS: digoxin 125mcg (0.125mg) tablet PO SCH (08:00)
[2020-01-03] MEDS: lactobacillus rhamnosus 10,000 MMU CELLS/CAPSULE PO SCH ×2 (08:01→19:41)
[2020-01-03] MEDS: aspirin 81mg tablet.DR PO SCH (08:01)
[2020-01-03] MEDS: docusate sod 100mg capsule PO SCH (08:01)
[2020-01-03] MEDS: losartan 50mg tablet PO SCH (08:01)
[2020-01-03] MEDS: sertraline 50mg tablet PO SCH (08:02)
[2020-01-03] MEDS: apixaban 2.5mg tablet PO SCH ×2 (08:02→19:41)
[2020-01-03] MEDS: atorvastatin 10mg tablet PO SCH (08:02)
[2020-01-03] MEDS: acetaminophen 325mg tablet PO PRN ×2 (09:07→19:01)
[2020-01-03 11:00] VITALS: BP 142/78
[2020-01-03 15:50] VITALS: BP_SYST 169; BP_SYST 172; BP_DIAS 84; BP_DIAS 92
[2020-01-03] MEDS: normal saline 1000ml 1,000 ML IV SCH (16:23)
[2020-01-03 18:00] VITALS: BP 147/65
--- NOTE | 2020-01-03 18:58 | NUR ---
Problems reprioritized. Patient report given, questions answered & plan of care reviewed with BENJAMIN MUSE & BENJAMIN CMKEON.
--- NOTE | 2020-01-03 19:00 | NUR ---
Patient in room [facility] 355. I have received report from Neftaly Luna RN and had the opportunity to ask questions and assume patient care. Addendum: 01/03/20 at 2205 by Nancy Pearl RN Amended: Links added.
[2020-01-04] VITALS (8 sets, daily range): BP systolic 124–185; BP diastolic 60–97
[2020-01-04] MEDS: cloNIDine 0.1 mg tablet PO SCH ×3 (00:09→16:02)
[2020-01-04] MEDS: hydrALAZINE 25 MG tablet PO SCH ×3 (00:10→16:02)
[2020-01-04] MEDS: normal saline 1000ml 1,000 ML IV SCH ×2 (03:06→16:01)
--- NOTE | 2020-01-04 06:24 | NUR ---
Problems reprioritized. Patient report given, questions answered & plan of care reviewed with Juli ALEXANDER.
--- NOTE | 2020-01-04 06:44 | NUR ---
Patient in room [facility] 355. I have received report from Tanvi ALEXANDER and Nancy ALEXANDER and had the opportunity to ask questions and assume patient care.
[2020-01-04] MEDS: sertraline 50mg tablet PO SCH (07:40)
[2020-01-04] MEDS: digoxin 125mcg (0.125mg) tablet PO SCH (07:40)
[2020-01-04] MEDS: lactobacillus rhamnosus 10,000 MMU CELLS/CAPSULE PO SCH ×2 (07:41→19:55)
[2020-01-04] MEDS: apixaban 2.5mg tablet PO SCH ×2 (07:41→19:55)
[2020-01-04] MEDS: losartan 50mg tablet PO SCH (07:41)
[2020-01-04] MEDS: docusate sod 100mg capsule PO SCH (07:41)
[2020-01-04] MEDS: aspirin 81mg tablet.DR PO SCH (07:42)
[2020-01-04] MEDS: atorvastatin 10mg tablet PO SCH (07:42)
[2020-01-04] MEDS: K and/or MAG REPLACEMENT MC SCH ×2 (08:00→19:51)
[2020-01-04] MEDS: acetaminophen 325mg tablet PO PRN ×2 (10:24→17:01)
--- NOTE | 2020-01-04 18:24 | NUR ---
Problems reprioritized. Patient report given, questions answered & plan of care reviewed with Prudence RN.
--- NOTE | 2020-01-04 19:01 | NUR ---
Patient in room [facility] 355. I have received report from AKIN ALEXANDER and had the opportunity to ask questions and assume patient care.
[2020-01-05] VITALS: BP 185/87
[2020-01-05] MEDS: hydrALAZINE 25 MG tablet PO SCH ×3 (00:04→16:18)
[2020-01-05] MEDS: cloNIDine 0.1 mg tablet PO SCH ×3 (00:05→16:18)
[2020-01-05] MEDS: acetaminophen 325mg tablet PO PRN ×3 (00:07→20:36)
[2020-01-05] MEDS: normal saline 1000ml 1,000 ML IV SCH (04:09)
--- NOTE | 2020-01-05 06:23 | NUR ---
Problems reprioritized. Patient report given, questions answered & plan of care reviewed with AKIN ALEXANDER.
--- NOTE | 2020-01-05 06:28 | NUR ---
Patient in room [facility] 355. I have received report from Tanvi ALEXANDER and had the opportunity to ask questions and assume patient care.
[2020-01-05 07:00] VITALS: BP 194/110
[2020-01-05] MEDS: sertraline 50mg tablet PO SCH (07:25)
[2020-01-05] MEDS: digoxin 125mcg (0.125mg) tablet PO SCH (07:25)
[2020-01-05] MEDS: docusate sod 100mg capsule PO SCH (07:25)
[2020-01-05] MEDS: lactobacillus rhamnosus 10,000 MMU CELLS/CAPSULE PO SCH ×2 (07:25→20:31)
[2020-01-05] MEDS: aspirin 81mg tablet.DR PO SCH (07:26)
[2020-01-05] MEDS: atorvastatin 10mg tablet PO SCH (07:26)
[2020-01-05] MEDS: apixaban 2.5mg tablet PO SCH ×2 (07:26→20:31)
[2020-01-05] MEDS: losartan 50mg tablet PO SCH (07:26)
[2020-01-05] MEDS: K and/or MAG REPLACEMENT MC SCH ×2 (08:00→19:56)
[2020-01-05 08:42] VITALS: BP 120/80
[2020-01-05 11:00] VITALS: BP 170/82
[2020-01-05] MEDS: traMADol 50MG tablet PO PRN ×2 (11:32→17:15)
--- NOTE | 2020-01-05 17:18 | NUR ---
Patient had shower today
[2020-01-05 18:00] VITALS: BP 131/68
--- NOTE | 2020-01-05 18:36 | NUR ---
Patient in room [facility] 355. I have received report from AKIN ALEXANDER and had the opportunity to ask questions and assume patient care.
--- NOTE | 2020-01-05 19:05 | NUR ---
Problems reprioritized. Patient report given, questions answered & plan of care reviewed with Prudence RN.
[2020-01-05 23:42] VITALS: BP 165/87
[2020-01-06] VITALS (7 sets, daily range): BP systolic 135–193; BP diastolic 60–103
[2020-01-06] MEDS: traMADol 50MG tablet PO PRN ×3 (05:23→20:07)
--- NOTE | 2020-01-06 06:30 | NUR ---
Problems reprioritized. Patient report given, questions answered & plan of care reviewed with DAMARIS ALEXANDER.
--- NOTE | 2020-01-06 06:34 | NUR ---
Patient in room [facility] 355. I have received report from Tanvi ALEXANDER and had the opportunity to ask questions and assume patient care.
[2020-01-06] MEDS: aspirin 81mg tablet.DR PO SCH (07:16)
[2020-01-06] MEDS: apixaban 2.5mg tablet PO SCH ×2 (07:16→20:08)
[2020-01-06] MEDS: docusate sod 100mg capsule PO SCH (07:16)
[2020-01-06] MEDS: digoxin 125mcg (0.125mg) tablet PO SCH (07:17)
[2020-01-06] MEDS: atorvastatin 10mg tablet PO SCH (07:17)
[2020-01-06] MEDS: sertraline 50mg tablet PO SCH (07:17)
[2020-01-06] MEDS: lactobacillus rhamnosus 10,000 MMU CELLS/CAPSULE PO SCH ×2 (07:17→20:07)
[2020-01-06] MEDS: hydrALAZINE 25 MG tablet PO SCH ×4 (07:18→23:17)
[2020-01-06] MEDS: cloNIDine 0.1 mg tablet PO SCH ×4 (07:19→23:13)
[2020-01-06] MEDS: losartan 50mg tablet PO SCH (08:00)
[2020-01-06] MEDS: K and/or MAG REPLACEMENT MC SCH ×2 (08:00→20:00)
--- NOTE | 2020-01-06 15:03 | NUR ---
F/u (01/05): Pt PO ~50% avg meals fluctuating meeting needs given IBW. LBM 01/02. No nutrition concerns at this time. Will continue to monitor. Recommendations: 1) Advance to regular diet as medically indicated 2) continue: oatmeal, fresh fruit, eggs, rice, and fruit a smoothie with meals 3) Routine bowel care 4) Scaled weights per rx Addendum: 01/06/20 at [address] Amended: Links added.
[2020-01-06] MEDS: acetaminophen 325mg tablet PO PRN (17:21)
[2020-01-06] MEDS ORDERED: HYDROcodone/acetaminophen 5mg/325mg tablet PO ONE (22:50)
--- NOTE | 2020-01-06 23:00 | NUR ---
Dr. Davila in to see bump on pt left leg. States no redness or warmth in leg area to suggest any clot and to have daytime RN bring to attention of daytime MD. Ordered Dexter 5 once for pain as it is uncontrolled with ultram and tylenol. Outlined bump to monitor size.
--- NOTE | 2020-01-07 06:11 | NUR ---
Problems reprioritized. Patient report given, questions answered & plan of care reviewed with BENJAMIN Fragoso.
--- NOTE | 2020-01-07 06:32 | NUR ---
Patient in room [facility] 355. I have received report from Abbie Sexton RN and had the opportunity to ask questions and assume patient care.
[2020-01-07 07:00] VITALS: BP 192/105
[2020-01-07] MEDS: docusate sod 100mg capsule PO SCH (07:25)
[2020-01-07] MEDS: aspirin 81mg tablet.DR PO SCH (07:25)
[2020-01-07] MEDS: sertraline 50mg tablet PO SCH (07:25)
[2020-01-07] MEDS: cloNIDine 0.1 mg tablet PO SCH ×3 (07:25→23:53)
[2020-01-07] MEDS: lactobacillus rhamnosus 10,000 MMU CELLS/CAPSULE PO SCH ×2 (07:25→20:59)
[2020-01-07] MEDS: apixaban 2.5mg tablet PO SCH ×2 (07:25→20:59)
[2020-01-07] MEDS: traMADol 50MG tablet PO PRN (07:25)
[2020-01-07] MEDS: atorvastatin 10mg tablet PO SCH (07:25)
[2020-01-07] MEDS: digoxin 125mcg (0.125mg) tablet PO SCH (07:26)
[2020-01-07] MEDS: hydrALAZINE 25 MG tablet PO SCH ×3 (07:27→23:52)
[2020-01-07] MEDS: losartan 50mg tablet PO SCH (08:00)
[2020-01-07] MEDS: K and/or MAG REPLACEMENT MC SCH ×2 (08:00→20:00)
[2020-01-07 08:06] LABS: ALANINE AMINOTRANSFERASE 13 U/L (12-78); ALBUMIN 3.3 G/DL (3.4-5.0); ALKALINE PHOSPHATASE 95 IU/L (46-116); ANION GAP 10 (8-16); ASPARTATE AMINO TRANSFERASE 12 U/L (10-37); BILIRUBIN,TOTAL 0.6 MG/DL (0.1-1.0); BLOOD UREA NITROGEN 12 MG/DL (7-18); BUN/CREATININE RATIO 7.2 (6.6-38.0); CALCIUM 8.4 MG/DL (8.5-10.1); CHLORIDE 106 MMOL/L (99-107); CREATININE 1.66 MG/DL (0.40-0.90); GLUCOSE 139 MG/DL (70-104); SODIUM 142 MMOL/L (135-145); TOTAL CARBON DIOXIDE 26.3 MMOL/L (24-32); TOTAL PROTEIN 6.5 G/DL (6.4-8.2); eGFR 30 ML/MIN
--- NOTE | 2020-01-07 08:18 | NUR ---
PAGER ID: [phone] MESSAGE: Kenia Phoenix 355A- Critical K at 3.0 could we please get protocol re-instated for her to replace. :)
[2020-01-07] MEDS ORDERED: potassium Cl 20 mEq SR tablet PO STA (09:28)
--- NOTE | 2020-01-07 10:07 | NUR ---
Dietary TC: Requests hot sauce/salsa w/ meats for food preferences; cony to send w/ meals. Addendum: 01/07/20 at [address] Amended: Links added.
[2020-01-07 10:30] VITALS: BP 139/85
[2020-01-07 11:00] VITALS: BP 168/76
[2020-01-07] MEDS: HYDROcodone/acetaminophen 5mg/325mg tablet PO PRN (13:16)
[2020-01-07 16:15] VITALS: BP 187/110
--- NOTE | 2020-01-07 17:10 | NUR ---
PAGER ID: [phone] MESSAGE: Kenia Awan [id number]- Heavy Equipment Rental Manager is down stairs per your request. Please call me. Fouzia [phone]
--- NOTE | 2020-01-07 17:35 | NUR ---
Pt had a visitor Karley Cosme a member of the [facility] community that is trying to seek help for her. The visitor knows people from the same place pt was born, he is reaching out in behalf of the [facility] Dr Rivas is aware and he was the one that reached out to him. Pt was very happy to speak to him.
--- NOTE | 2020-01-07 18:33 | NUR ---
Problems reprioritized. Patient report given, questions answered & plan of care reviewed with Vicky ALEXANDER.
--- NOTE | 2020-01-07 18:39 | NUR ---
Patient in room [facility] 354. I have received report from Octavia ALEXANDER and had the opportunity to ask questions and assume patient care.
[2020-01-07 20:00] VITALS: BP 173/87
[2020-01-08] VITALS: BP 187/97
[2020-01-08 01:00] VITALS: BP 166/85
--- NOTE | 2020-01-08 06:49 | NUR ---
Problems reprioritized. Patient report given, questions answered & plan of care reviewed with Ariadna ALEXANDER.
--- NOTE | 2020-01-08 06:57 | NUR ---
Patient in room [facility] 355. I have received report from Marina Valverde RN and had the opportunity to ask questions and assume patient care.
[2020-01-08 07:00] VITALS: BP 193/111
[2020-01-08] MEDS: sertraline 50mg tablet PO SCH (07:20)
[2020-01-08] MEDS: lactobacillus rhamnosus 10,000 MMU CELLS/CAPSULE PO SCH ×2 (07:20→20:49)
[2020-01-08] MEDS: apixaban 2.5mg tablet PO SCH ×2 (07:20→20:49)
[2020-01-08] MEDS: digoxin 125mcg (0.125mg) tablet PO SCH (07:20)
[2020-01-08] MEDS: atorvastatin 10mg tablet PO SCH (07:20)
[2020-01-08] MEDS: docusate sod 100mg capsule PO SCH (07:21)
[2020-01-08] MEDS: cloNIDine 0.1 mg tablet PO SCH ×3 (07:21→23:54)
[2020-01-08] MEDS: aspirin 81mg tablet.DR PO SCH (07:21)
[2020-01-08] MEDS: hydrALAZINE 25 MG tablet PO SCH ×3 (07:22→20:49)
[2020-01-08] MEDS: losartan 50mg tablet PO SCH (07:33)
[2020-01-08] MEDS: K and/or MAG REPLACEMENT MC SCH ×2 (08:00→20:00)
--- NOTE | 2020-01-08 10:34 | NUR ---
Dr Rivas at bedside, advised pt received Potassium replacement yesterday, no labs ordered for today. Do not order labs per . wants Hydralazine q 8 hrs retimed to be given at 0500, spoke with and retimed by Pharmacist Bibi.
[2020-01-08 11:00] VITALS: BP 172/90
[2020-01-08 13:10] VITALS: BP 162/87
--- NOTE | 2020-01-08 15:12 | NUR ---
PAGER ID: [phone] MESSAGE: Re: 355A, [facility] [phone]. PT noted pt has in intermittent R foot drop/drag with ambulation. Was up with FWW, but required Rehab walker to get back to room.
--- NOTE | 2020-01-08 18:51 | NUR ---
Problems reprioritized. Patient report given, questions answered & plan of care reviewed with Teri ALEXANDER.
[2020-01-08 20:00] VITALS: BP 110/64
[2020-01-08] MEDS: HYDROcodone/acetaminophen 5mg/325mg tablet PO PRN (20:56)
[2020-01-09] VITALS: BP 115/70
[2020-01-09] MEDS: hydrALAZINE 25 MG tablet PO SCH ×3 (05:26→20:08)
--- NOTE | 2020-01-09 06:52 | NUR ---
Patient in room [facility] 355. I have received report from BENJAMIN LEMUS and had the opportunity to ask questions and assume patient care.
[2020-01-09 07:00] VITALS: BP 163/91
[2020-01-09] MEDS: K and/or MAG REPLACEMENT MC SCH ×2 (08:00→19:54)
[2020-01-09] MEDS: sertraline 50mg tablet PO SCH (08:14)
[2020-01-09] MEDS: cloNIDine 0.1 mg tablet PO SCH ×3 (08:14→23:09)
[2020-01-09] MEDS: aspirin 81mg tablet.DR PO SCH (08:14)
[2020-01-09] MEDS: lactobacillus rhamnosus 10,000 MMU CELLS/CAPSULE PO SCH ×2 (08:14→20:09)
[2020-01-09] MEDS: docusate sod 100mg capsule PO SCH (08:14)
[2020-01-09] MEDS: atorvastatin 10mg tablet PO SCH (08:14)
[2020-01-09] MEDS: losartan 50mg tablet PO SCH (08:14)
[2020-01-09] MEDS: apixaban 2.5mg tablet PO SCH ×2 (08:14→20:09)
[2020-01-09] MEDS: digoxin 125mcg (0.125mg) tablet PO SCH (08:18)
--- NOTE | 2020-01-09 08:44 | NUR ---
PATIENT STANDING AT SINK IN ROOM WASHING HANDS, BRUSHING TEETH, WASHING FACE AND PATIENT TOOK 2 STEPS TO GO BACK TO BED BUT STATED IN MIEN LANGUAGE "I'M GOING TO FALL." PATIENT KEPT ATTEMPTING TO AMBULATE BACK TO BED BUT LEGS BUCKLED BUT PATIENT DID NOT FALL. ABLE TO KEEP PATIENT PROPPED UP IN ALMOST SITTING POSITION ON MY KNEE AND CALLED FOR HELP. HRIS MANAGER, FLACA AND MARY GRACE PCT IN TO ASSIST PATIENT BACK TO BED. PER HRIS MANAGER, PATIENT FELT CLAMMY AND HOT. LET FLACA KNOW PATIENT HAD JUST FINISHED WASHING HER HANDS, BRUSHING TEETH AND WASHING FACE. VS 174/92, 98.2, 87, BG 245. DR MEYER NOTIFIED. NO NEW ORDERS.
[2020-01-09 11:57] VITALS: BP 159/94
[2020-01-09 13:20] VITALS: BP 195/81
[2020-01-09] MEDS: traMADol 50MG tablet PO PRN (13:35)
[2020-01-09] MEDS: hydrALAZINE 20mg/ml inj. IV PRN (13:48)
[2020-01-09 15:47] VITALS: BP 122/57
[2020-01-09 18:00] VITALS: BP 183/82
--- NOTE | 2020-01-09 18:37 | NUR ---
Patient in room [facility] 355. I have received report from BENJAMIN Burrows and had the opportunity to ask questions and assume patient care.
[2020-01-10] VITALS (7 sets, daily range): BP systolic 141–192; BP diastolic 69–98
[2020-01-10] MEDS: hydrALAZINE 20mg/ml inj. IV PRN (01:17)
[2020-01-10] MEDS: hydrALAZINE 25 MG tablet PO SCH ×3 (04:11→21:06)
[2020-01-10 05:22] LABS: ALBUMIN 3.3 G/DL (3.4-5.0); ANION GAP 7 (8-16); BLOOD UREA NITROGEN 16 MG/DL (7-18); BUN/CREATININE RATIO 9.5 (6.6-38.0); CALCIUM 8.8 MG/DL (8.5-10.1); CHLORIDE 104 MMOL/L (99-107); CREATININE 1.69 MG/DL (0.40-0.90); GLUCOSE 159 MG/DL (70-104); POTASSIUM 3.4 MMOL/L (3.5-5.1); SODIUM 138 MMOL/L (135-145); TOTAL CARBON DIOXIDE 27.2 MMOL/L (24-32); eGFR 29 ML/MIN
--- NOTE | 2020-01-10 06:48 | NUR ---
Problems reprioritized. Patient report given, questions answered & plan of care reviewed with BENJAMIN Alfaro.
--- NOTE | 2020-01-10 07:06 | NUR ---
Patient in room [facility] 355. I have received report from DARLENE ALEXANDER and had the opportunity to ask questions and assume patient care.
[2020-01-10] MEDS: lactobacillus rhamnosus 10,000 MMU CELLS/CAPSULE PO SCH ×2 (07:48→19:46)
[2020-01-10] MEDS: aspirin 81mg tablet.DR PO SCH (07:48)
[2020-01-10] MEDS: sertraline 50mg tablet PO SCH (07:48)
[2020-01-10] MEDS: apixaban 2.5mg tablet PO SCH ×2 (07:49→19:46)
[2020-01-10] MEDS: digoxin 125mcg (0.125mg) tablet PO SCH (07:49)
[2020-01-10] MEDS: docusate sod 100mg capsule PO SCH (07:49)
[2020-01-10] MEDS: cloNIDine 0.1 mg tablet PO SCH ×2 (07:50→16:22)
[2020-01-10] MEDS: atorvastatin 10mg tablet PO SCH (07:50)
[2020-01-10] MEDS: K and/or MAG REPLACEMENT MC SCH ×2 (07:54→19:38)
[2020-01-10] MEDS: losartan 50mg tablet PO SCH (07:56)
[2020-01-10] MEDS: acetaminophen 325mg tablet PO PRN (08:44)
--- NOTE | 2020-01-10 14:04 | NUR ---
Reassessment: Pt continues averaging 50% PO intake likely meeting nutrient needs given geriatric age and small stature. LBM 01/08 documented as small with last moderate BM 01/06. Pt receiving routine bowel care. No further nutrition intervention implemented at this time. Will continue to follow. Recommendations: 1) Advance to regular diet as medically indicated 2) continue: oatmeal, fresh fruit, eggs, rice, and fruit a smoothie with meals; hot sauce/salsa w/ meats per preferences 3) Routine bowel care; monitor need for additional 4) Scaled weights per rx Addendum: 01/10/20 at [address] Amended: Links added.
[2020-01-10] MEDS ORDERED: magnesium 4gm in 100ml NS 100 ML IV PRN (17:00)
[2020-01-10] MEDS ORDERED: magnesium Cl slow-release 64mg tablet PO PRN (17:00)
[2020-01-10] MEDS ORDERED: potassium Cl 20 mEq SR tablet PO PRN ×2 (17:00)
[2020-01-10] MEDS ORDERED: potassium CL 10mEq/100ml bag 100 ML IV PRN ×2 (17:00)
--- NOTE | 2020-01-10 18:05 | NUR ---
Problems reprioritized. Patient report given, questions answered & plan of care reviewed with Prudence RN.
--- NOTE | 2020-01-10 18:41 | NUR ---
Patient in room [facility] 355. I have received report from KULWANT ALEXANDER and had the opportunity to ask questions and assume patient care.
[2020-01-10] MEDS: HYDROcodone/acetaminophen 5mg/325mg tablet PO PRN (19:46)
[2020-01-11] MEDS: cloNIDine 0.1 mg tablet PO SCH ×4 (00:13→23:48)
[2020-01-11 00:20] VITALS: BP 148/81
[2020-01-11 05:38] LABS: MAGNESIUM 1.8 MG/DL (1.5-2.4); POTASSIUM 3.6 MMOL/L (3.5-5.1)
[2020-01-11] MEDS: hydrALAZINE 25 MG tablet PO SCH ×3 (05:54→22:07)
--- NOTE | 2020-01-11 06:14 | NUR ---
Problems reprioritized. Patient report given, questions answered & plan of care reviewed with KULWANT RN.
[2020-01-11] MEDS: HYDROcodone/acetaminophen 5mg/325mg tablet PO PRN ×2 (06:21→19:46)
[2020-01-11] MEDS: digoxin 125mcg (0.125mg) tablet PO SCH (06:25)
--- NOTE | 2020-01-11 06:30 | NUR ---
Patient in room [facility] 355. I have received report from Tanvi ALEXANDER and had the opportunity to ask questions and assume patient care.
[2020-01-11 07:00] VITALS: BP 126/90
[2020-01-11] MEDS: K and/or MAG REPLACEMENT MC SCH ×2 (08:00→19:41)
[2020-01-11] MEDS: aspirin 81mg tablet.DR PO SCH (08:15)
[2020-01-11] MEDS: apixaban 2.5mg tablet PO SCH ×2 (08:15→19:47)
[2020-01-11] MEDS: docusate sod 100mg capsule PO SCH (08:15)
[2020-01-11] MEDS: sertraline 50mg tablet PO SCH (08:15)
[2020-01-11] MEDS: lactobacillus rhamnosus 10,000 MMU CELLS/CAPSULE PO SCH ×2 (08:15→19:46)
[2020-01-11] MEDS: atorvastatin 10mg tablet PO SCH (08:16)
[2020-01-11] MEDS: losartan 50mg tablet PO SCH (08:17)
[2020-01-11 11:41] VITALS: BP 153/72
[2020-01-11] MEDS ORDERED: ALPRAZolam 0.25mg tablet PO ONE (12:00)
[2020-01-11 18:00] VITALS: BP 107/54
--- NOTE | 2020-01-11 18:08 | NUR ---
Problems reprioritized. Patient report given, questions answered & plan of care reviewed with Prudence RN.
--- NOTE | 2020-01-11 18:29 | NUR ---
Patient in room [facility] 355. I have received report from KULWANT ALEXANDER and had the opportunity to ask questions and assume patient care.
[2020-01-12] VITALS: BP 170/83
[2020-01-12] MEDS: hydrALAZINE 25 MG tablet PO SCH ×2 (04:43→13:31)
[2020-01-12] MEDS: HYDROcodone/acetaminophen 5mg/325mg tablet PO PRN (04:43)
[2020-01-12 05:57] LABS: MAGNESIUM 1.9 MG/DL (1.5-2.4); POTASSIUM 3.5 MMOL/L (3.5-5.1)
--- NOTE | 2020-01-12 06:34 | NUR ---
Patient in room [facility] 355. I have received report from Tanvi ALEXANDER and had the opportunity to ask questions and assume patient care.
--- NOTE | 2020-01-12 06:45 | NUR ---
Problems reprioritized. Patient report given, questions answered & plan of care reviewed with Ariadna ALEXANDER.
[2020-01-12 07:00] VITALS: BP 145/74
[2020-01-12] MEDS: K and/or MAG REPLACEMENT MC SCH ×2 (08:00→20:00)
[2020-01-12] MEDS: lactobacillus rhamnosus 10,000 MMU CELLS/CAPSULE PO SCH (08:51)
[2020-01-12] MEDS: digoxin 125mcg (0.125mg) tablet PO SCH (08:51)
[2020-01-12] MEDS: docusate sod 100mg capsule PO SCH (08:51)
[2020-01-12] MEDS: losartan 50mg tablet PO SCH (08:52)
[2020-01-12] MEDS: atorvastatin 10mg tablet PO SCH (08:52)
[2020-01-12] MEDS: cloNIDine 0.1 mg tablet PO SCH ×2 (08:52→16:14)
[2020-01-12] MEDS: apixaban 2.5mg tablet PO SCH ×2 (08:52→20:00)
[2020-01-12] MEDS: aspirin 81mg tablet.DR PO SCH (08:52)
[2020-01-12] MEDS: sertraline 50mg tablet PO SCH (08:53)
[2020-01-12 11:00] VITALS: BP 141/72
--- NOTE | 2020-01-12 19:00 | NUR ---
Problems reprioritized. Patient report given, questions answered & plan of care reviewed with Urmila ALEXANDER.
[2020-01-12 20:00] VITALS: BP 108/67
--- NOTE | 2020-01-12 22:00 | NUR ---
Pt. awake alert to own name. Used wet pan mixer line for pt. care. Pt. expressed a lot of concerns to the wet pan mixer regarding pt's family abandoning pt at the hospital. Left the wet pan mixer online with charge nurse as I went to see my pt. that was not experiencing change of condition. Addendum: 01/13/20 at 0518 by Urmila Riggins RN Amended: Links added.
[2020-01-13] VITALS: BP 185/81
[2020-01-13] MEDS: hydrALAZINE 25 MG tablet PO SCH ×4 (00:04→20:24)
[2020-01-13] MEDS: lactobacillus rhamnosus 10,000 MMU CELLS/CAPSULE PO SCH ×3 (00:13→20:25)
[2020-01-13 05:45] LABS: MAGNESIUM 1.9 MG/DL (1.5-2.4); POTASSIUM 3.6 MMOL/L (3.5-5.1)
--- NOTE | 2020-01-13 06:28 | NUR ---
Patient in room [facility] 355. I have received report from Urmila ALEXANDER and had the opportunity to ask questions and assume patient care.
[2020-01-13 07:00] VITALS: BP 163/96
[2020-01-13] MEDS: K and/or MAG REPLACEMENT MC SCH ×2 (08:00→20:00)
[2020-01-13] MEDS: cloNIDine 0.1 mg tablet PO SCH ×3 (08:00→16:00)
[2020-01-13] MEDS: docusate sod 100mg capsule PO SCH (08:09)
[2020-01-13] MEDS: apixaban 2.5mg tablet PO SCH ×2 (08:09→20:20)
[2020-01-13] MEDS: aspirin 81mg tablet.DR PO SCH (08:09)
[2020-01-13] MEDS: sertraline 50mg tablet PO SCH (08:09)
[2020-01-13] MEDS: atorvastatin 10mg tablet PO SCH (08:09)
[2020-01-13] MEDS: lisinopril 10 MG tablet PO SCH ×2 (08:10→20:23)
[2020-01-13] MEDS: digoxin 125mcg (0.125mg) tablet PO SCH (08:11)
--- NOTE | 2020-01-13 09:24 | NUR ---
phoned Pharmacy, no [facility] in [facility] for pt's 0800 dose. [facility] is out of med at this time. Notified Dr Rivas. Will continue to monitor pt.
[2020-01-13 10:00] VITALS: BP 162/84
[2020-01-13] MEDS: ondansetron/PF 4mg/2ml inj IV PRN (10:02)
--- NOTE | 2020-01-13 10:17 | NUR ---
PAGER ID: [phone] MESSAGE: RE: Kenia Awan Rm [id number]. Pt had moderate emesis. Zofran given per PRN orders. Thank you, [facility] [phone] BP 162/84, HR-77. Will continue to monitor patient.
[2020-01-13 11:00] VITALS: BP 154/87
--- NOTE | 2020-01-13 16:52 | NUR ---
phoned Pharmacy-they are aware [facility] continues to be unavailable in the [facility]hospital. State shipment received and they will provide med when able to. MD aware. Will continue to monitor pt.
--- NOTE | 2020-01-13 18:00 | NUR ---
Patient in room [facility] 355. I have received report from Ariadna ALEXANDER and had the opportunity to ask questions and assume patient care. Addendum: 01/13/20 at 1854 by Urmila Riggins RN Amended: Links added.
--- NOTE | 2020-01-13 18:37 | NUR ---
Problems reprioritized. Patient report given, questions answered & plan of care reviewed with Urmila ALEXANDER.
[2020-01-13 20:00] VITALS: BP 128/63
[2020-01-14] VITALS: BP 157/80
[2020-01-14] MEDS: cloNIDine 0.1 mg tablet PO SCH ×3 (02:28→16:35)
--- NOTE | 2020-01-14 06:00 | NUR ---
Problems reprioritized. Patient report given, questions answered & plan of care reviewed with day shift RN. Addendum: 01/14/20 at 0718 by Urmila Riggins RN Amended: Links added.
[2020-01-14] MEDS: hydrALAZINE 25 MG tablet PO SCH ×3 (06:08→21:40)
[2020-01-14] MEDS: lisinopril 10 MG tablet PO SCH ×2 (07:48→21:40)
[2020-01-14] MEDS: docusate sod 100mg capsule PO SCH (07:48)
[2020-01-14] MEDS: sertraline 50mg tablet PO SCH (07:48)
[2020-01-14] MEDS: lactobacillus rhamnosus 10,000 MMU CELLS/CAPSULE PO SCH ×2 (07:49→21:39)
[2020-01-14] MEDS: aspirin 81mg tablet.DR PO SCH (07:49)
[2020-01-14] MEDS: apixaban 2.5mg tablet PO SCH ×2 (07:49→21:40)
[2020-01-14] MEDS: atorvastatin 10mg tablet PO SCH (07:49)
[2020-01-14] MEDS: digoxin 125mcg (0.125mg) tablet PO SCH (07:52)
[2020-01-14 08:00] VITALS: BP 143/72
[2020-01-14] MEDS: K and/or MAG REPLACEMENT MC SCH ×2 (08:00→20:00)
[2020-01-14 12:05] VITALS: BP 155/45
[2020-01-14 15:10] VITALS: BP 136/57
--- NOTE | 2020-01-14 18:19 | NUR ---
Problems reprioritized. Patient report given, questions answered & plan of care reviewed with BENJAMIN Torres.
--- NOTE | 2020-01-14 18:57 | NUR ---
Patient in room [facility] 355. I have received report from Luisa ALEXANDER and had the opportunity to ask questions and assume patient care.
[2020-01-14 20:00] VITALS: BP 152/73
[2020-01-14] MEDS: HYDROcodone/acetaminophen 5mg/325mg tablet PO PRN (21:42)
[2020-01-15] VITALS (8 sets, daily range): BP systolic 101–189; BP diastolic 59–98
[2020-01-15] MEDS: cloNIDine 0.1 mg tablet PO SCH ×4 (02:07→23:56)
[2020-01-15] MEDS: hydrALAZINE 25 MG tablet PO SCH ×3 (05:52→20:34)
--- NOTE | 2020-01-15 06:11 | NUR ---
Problems reprioritized. Patient report given, questions answered & plan of care reviewed with Fouzia ALEXANDER.
--- NOTE | 2020-01-15 06:39 | NUR ---
Patient in room [facility] 355. I have received report from Abbie ALEXANDER and had the opportunity to ask questions and assume patient care.
[2020-01-15] MEDS: K and/or MAG REPLACEMENT MC SCH ×2 (08:00→19:03)
[2020-01-15] MEDS: sertraline 50mg tablet PO SCH (08:39)
[2020-01-15] MEDS: lactobacillus rhamnosus 10,000 MMU CELLS/CAPSULE PO SCH ×2 (08:39→19:27)
[2020-01-15] MEDS: apixaban 2.5mg tablet PO SCH ×2 (08:39→19:27)
[2020-01-15] MEDS: atorvastatin 10mg tablet PO SCH (08:39)
[2020-01-15] MEDS: docusate sod 100mg capsule PO SCH (08:39)
[2020-01-15] MEDS: aspirin 81mg tablet.DR PO SCH (08:39)
[2020-01-15] MEDS: lisinopril 10 MG tablet PO SCH ×2 (08:40→19:27)
[2020-01-15] MEDS: digoxin 125mcg (0.125mg) tablet PO SCH (08:45)
--- NOTE | 2020-01-15 18:05 | NUR ---
Received report from primary care nurse Fouzia ALEXANDER. Patient is awake and alert on room air. Patient has been set up for dinner. Call light and items of frequent use within reach. Will continue to monitor for changes.
--- NOTE | 2020-01-15 18:30 | NUR ---
Problems reprioritized. Patient report given, questions answered & plan of care reviewed with Angelica ALEXANDER.
[2020-01-16] VITALS: BP 171/83
[2020-01-16] MEDS: hydrALAZINE 25 MG tablet PO SCH ×3 (05:20→20:06)
--- NOTE | 2020-01-16 06:23 | NUR ---
Reported off to Mira ALEXANDER. Patient is resting with relaxed and unlabored respirations on room air. In no apparent distress. Call light and items of frequent use within reach.
--- NOTE | 2020-01-16 06:33 | NUR ---
Patient in room [facility] 355A. I have received report from BENJAMIN TABARES and had the opportunity to ask questions and assume patient care.
[2020-01-16 07:00] VITALS: BP 118/73
[2020-01-16] MEDS: atorvastatin 10mg tablet PO SCH (07:36)
[2020-01-16] MEDS: docusate sod 100mg capsule PO SCH (07:36)
[2020-01-16] MEDS: sertraline 50mg tablet PO SCH (07:36)
[2020-01-16] MEDS: lactobacillus rhamnosus 10,000 MMU CELLS/CAPSULE PO SCH ×2 (07:36→19:21)
[2020-01-16] MEDS: aspirin 81mg tablet.DR PO SCH (07:36)
[2020-01-16] MEDS: cloNIDine 0.1 mg tablet PO SCH ×3 (07:37→23:41)
[2020-01-16] MEDS: lisinopril 10 MG tablet PO SCH ×2 (07:37→19:21)
[2020-01-16] MEDS: apixaban 2.5mg tablet PO SCH ×2 (07:39→19:21)
[2020-01-16] MEDS: digoxin 125mcg (0.125mg) tablet PO SCH (07:39)
[2020-01-16] MEDS: K and/or MAG REPLACEMENT MC SCH ×2 (08:00→19:26)
[2020-01-16 12:07] VITALS: BP 140/71
[2020-01-16] MEDS: HYDROcodone/acetaminophen 5mg/325mg tablet PO PRN ×2 (12:28→19:26)
--- NOTE | 2020-01-16 14:25 | NUR ---
Reassessment: Patient's PO intake improved to 75-100% however now down to 25-50% PO intake likely not fully meeting nutrient needs at this time. Over the past few days patient has been upset stating that she wants to go home and likely r/t feeling abandoned and isolated here in the hospital per MD notes. This could be impacting patient's PO intake. LBM 01/12, receiving routine bowel care however documented with small BMS with last moderate BM being 01/06. Constipation also likely impacting PO intake. D/w dietary to send prunes and prune juice with next meal to assist with bowel regularity. Will continue to follow closely and monitor need for further nutrition intervention. Recommendations: 1) Advance to regular diet as medically indicated 2) continue: oatmeal, fresh fruit, eggs, rice, and fruit a smoothie with meals; hot sauce/salsa w/ meats per preferences 3) Routine bowel care; monitor need for additional 4) Scaled weights per rx Addendum: 01/16/20 at [address] Amended: Links added.
--- NOTE | 2020-01-16 18:25 | NUR ---
Received report from primary care nurse Cheryl ALEXANDER. Assumed patient care. Patient is awake and alert on room air eating her noodles. In no apparent distress. Call light and items of frequent use within reach. Will continue to monitor for changes.
--- NOTE | 2020-01-16 18:30 | NUR ---
Problems reprioritized. Patient report given, questions answered & plan of care reviewed with BENJAMIN TABARES.
[2020-01-17] VITALS: BP 163/79
[2020-01-17] MEDS: hydrALAZINE 25 MG tablet PO SCH ×3 (05:02→20:28)
--- NOTE | 2020-01-17 06:00 | NUR ---
Reported off to Cheryl ALEXANDER. Patient is resting with relaxed and unlabored respirations on room air. In no apparent distress. Bed alarms on and audible. Call light and items of frequent use within reach.
--- NOTE | 2020-01-17 06:08 | NUR ---
Patient in room [facility] 355A. I have received report from BEJNAMIN TABARES and had the opportunity to ask questions and assume patient care.
[2020-01-17 07:00] VITALS: BP 121/63
[2020-01-17] MEDS: digoxin 125mcg (0.125mg) tablet PO SCH (07:00)
[2020-01-17] MEDS: lactobacillus rhamnosus 10,000 MMU CELLS/CAPSULE PO SCH ×2 (07:42→20:27)
[2020-01-17] MEDS: apixaban 2.5mg tablet PO SCH ×2 (07:42→20:27)
[2020-01-17] MEDS: docusate sod 100mg capsule PO SCH (07:42)
[2020-01-17] MEDS: atorvastatin 10mg tablet PO SCH (07:42)
[2020-01-17] MEDS: aspirin 81mg tablet.DR PO SCH (07:42)
[2020-01-17] MEDS: K and/or MAG REPLACEMENT MC SCH ×2 (07:42→18:34)
[2020-01-17] MEDS: sertraline 50mg tablet PO SCH (07:50)
[2020-01-17] MEDS: cloNIDine 0.1 mg tablet PO SCH ×2 (08:00→16:00)
[2020-01-17] MEDS: lisinopril 10 MG tablet PO SCH ×2 (08:00→20:28)
[2020-01-17] MEDS: HYDROcodone/acetaminophen 5mg/325mg tablet PO PRN ×2 (10:23→20:31)
[2020-01-17 11:00] VITALS: BP 140/90
--- NOTE | 2020-01-17 17:48 | NUR ---
DID NOT GIVE 1300 MEDS BECAUSE WAS DISCHARGING OTHER PATIENT AND FORGOT TO GIVE
--- NOTE | 2020-01-17 18:30 | NUR ---
Problems reprioritized. Patient report given, questions answered & plan of care reviewed with BENJAMIN LEMUS.
[2020-01-17 20:00] VITALS: BP 184/86
[2020-01-18] VITALS: BP 119/68
[2020-01-18] MEDS: cloNIDine 0.1 mg tablet PO SCH ×3 (00:55→16:02)
[2020-01-18] MEDS: hydrALAZINE 25 MG tablet PO SCH ×3 (05:05→20:15)
--- NOTE | 2020-01-18 06:20 | NUR ---
Patient in room [facility] 357. I have received report from BENJAMIN Williamson and had the opportunity to ask questions and assume patient care.
--- NOTE | 2020-01-18 06:33 | NUR ---
Problems reprioritized. Patient report given, questions answered & plan of care reviewed with Elisabeth RN.
[2020-01-18] MEDS: K and/or MAG REPLACEMENT MC SCH ×2 (06:59→20:00)
[2020-01-18 07:58] VITALS: BP 110/74
[2020-01-18] MEDS: sertraline 50mg tablet PO SCH (10:21)
[2020-01-18] MEDS: lactobacillus rhamnosus 10,000 MMU CELLS/CAPSULE PO SCH ×2 (10:21→20:12)
[2020-01-18] MEDS: apixaban 2.5mg tablet PO SCH ×2 (10:21→20:12)
[2020-01-18] MEDS: aspirin 81mg tablet.DR PO SCH (10:21)
[2020-01-18] MEDS: docusate sod 100mg capsule PO SCH (10:22)
[2020-01-18] MEDS: digoxin 125mcg (0.125mg) tablet PO SCH (10:22)
[2020-01-18] MEDS: atorvastatin 10mg tablet PO SCH (10:22)
[2020-01-18] MEDS: lisinopril 10 MG tablet PO SCH ×2 (10:23→20:12)
[2020-01-18] MEDS: HYDROcodone/acetaminophen 5mg/325mg tablet PO PRN (12:07)
[2020-01-18 13:00] VITALS: BP 167/82
[2020-01-18] MEDS: traMADol 50MG tablet PO PRN (15:07)
[2020-01-18 16:00] VITALS: BP 148/80
[2020-01-18 18:00] VITALS: BP 173/93
--- NOTE | 2020-01-18 18:30 | NUR ---
Patient in room [facility] 357. I have received report from Elisabeth ALEXANDER and had the opportunity to ask questions and assume patient care.
--- NOTE | 2020-01-18 18:30 | NUR ---
Problems reprioritized. Patient report given, questions answered & plan of care reviewed with BENJAMIN Leo.
[2020-01-19] VITALS: BP 183/93
[2020-01-19] MEDS: cloNIDine 0.1 mg tablet PO SCH ×3 (00:08→15:33)
--- NOTE | 2020-01-19 06:15 | NUR ---
Patient in room [facility]OX[facility] 357. I have received report from BENJAMIN Leo and had the opportunity to ask questions and assume patient care.
--- NOTE | 2020-01-19 06:15 | NUR ---
Problems reprioritized. Patient report given, questions answered & plan of care reviewed with GEMA RN.
[2020-01-19] MEDS: hydrALAZINE 25 MG tablet PO SCH ×3 (06:25→20:20)
[2020-01-19] MEDS: K and/or MAG REPLACEMENT MC SCH ×2 (07:40→20:00)
[2020-01-19 07:53] VITALS: BP 182/103
[2020-01-19] MEDS: aspirin 81mg tablet.DR PO SCH (08:53)
[2020-01-19] MEDS: docusate sod 100mg capsule PO SCH (08:53)
[2020-01-19] MEDS: digoxin 125mcg (0.125mg) tablet PO SCH (08:53)
[2020-01-19] MEDS: atorvastatin 10mg tablet PO SCH (08:53)
[2020-01-19] MEDS: sertraline 50mg tablet PO SCH (08:53)
[2020-01-19] MEDS: apixaban 2.5mg tablet PO SCH ×2 (08:53→20:20)
[2020-01-19] MEDS: lactobacillus rhamnosus 10,000 MMU CELLS/CAPSULE PO SCH ×2 (08:53→20:19)
[2020-01-19] MEDS: lisinopril 10 MG tablet PO SCH ×2 (08:54→20:19)
[2020-01-19 11:00] VITALS: BP 132/81
[2020-01-19 13:00] VITALS: BP 127/78
[2020-01-19] MEDS: HYDROcodone/acetaminophen 5mg/325mg tablet PO PRN ×2 (13:27→20:23)
--- NOTE | 2020-01-19 14:30 | NUR ---
F/u (01/18): Pt PO decreased past 5 days down to ~25% avg meals not meeting needs. AOx2 per EMR. RN reports pt had large BM yesterday in their EMR; is receiving routine colace. Chronic anemia stable w/ encephalopathy, UTI, and dehydration resolved per MD. Nausea at breakfast today and possible dementia as well per MD note. Constipation likely to impact prior PO as well. No new labs in 6 days. Will continue to monitor. Recommendations: 1) Advance to regular diet as medically indicated 2) continue: oatmeal, fresh fruit, eggs, rice, and fruit a smoothie with meals; hot sauce/salsa w/ meats per preferences 3) Routine bowel care; monitor need for additional 4) Scaled weights per rx Addendum: 01/19/20 at [address] Amended: Links added.
[2020-01-19 15:34] VITALS: BP 128/67
--- NOTE | 2020-01-19 18:50 | NUR ---
Problems reprioritized. Patient report given, questions answered & plan of care reviewed with BENJAMIN Torres.
--- NOTE | 2020-01-19 18:57 | NUR ---
Patient in room [facility] 357. I have received report from Elisabeth ALEXANDER and had the opportunity to ask questions and assume patient care.
[2020-01-19 19:59] VITALS: BP 172/97
[2020-01-20] VITALS: BP 143/85
[2020-01-20] MEDS: cloNIDine 0.1 mg tablet PO SCH ×3 (00:50→16:42)
[2020-01-20 05:32] VITALS: BP 193/100
[2020-01-20] MEDS: hydrALAZINE 25 MG tablet PO SCH ×3 (05:32→20:55)
--- NOTE | 2020-01-20 06:00 | NUR ---
Patient in room [facility] 357. I have received report from BENJAMIN Torres and had the opportunity to ask questions and assume patient care.
--- NOTE | 2020-01-20 06:15 | NUR ---
Problems reprioritized. Patient report given, questions answered & plan of care reviewed with Amee ALEXANDER.
[2020-01-20] MEDS: digoxin 125mcg (0.125mg) tablet PO SCH (07:21)
[2020-01-20] MEDS: apixaban 2.5mg tablet PO SCH ×2 (07:21→20:55)
[2020-01-20] MEDS: docusate sod 100mg capsule PO SCH (07:21)
[2020-01-20] MEDS: sertraline 50mg tablet PO SCH (07:21)
[2020-01-20] MEDS: aspirin 81mg tablet.DR PO SCH (07:21)
[2020-01-20] MEDS: lactobacillus rhamnosus 10,000 MMU CELLS/CAPSULE PO SCH ×2 (07:21→20:55)
[2020-01-20] MEDS: HYDROcodone/acetaminophen 5mg/325mg tablet PO PRN ×3 (07:22→21:00)
[2020-01-20] MEDS: atorvastatin 10mg tablet PO SCH (07:22)
[2020-01-20] MEDS: lisinopril 10 MG tablet PO SCH ×2 (07:22→20:55)
[2020-01-20 08:00] VITALS: BP 137/80
[2020-01-20] MEDS: K and/or MAG REPLACEMENT MC SCH ×2 (08:00→20:00)
[2020-01-20 11:00] VITALS: BP 142/69
[2020-01-20] MEDS: ondansetron 4mg rapidly disintigrating tab PO PRN (14:44)
[2020-01-20] MEDS: traMADol 50MG tablet PO PRN (14:48)
[2020-01-20 15:52] LABS: BASOPHILS % (AUTO) 0.4 % (0-1); EOSINOPHILS % (AUTO) 0.4 % (0-6); HEMATOCRIT 32.7 % (35.0-45.0); HEMOGLOBIN 10.4 g/dl (12.0-16.0); LYMPHOCYTES # (AUTO) 1.7 X10'3 (1.1-4.8); LYMPHOCYTES % (AUTO) 33.7 % (21-51); MEAN CORPUSCULAR HEMOGLOBIN 18.7 PG (27.0-31.0); MEAN CORPUSCULAR HGB CONC 31.8 g/dL (33.0-36.5); MEAN CORPUSCULAR VOLUME 58.9 FL (78-98); MEAN PLATELET VOLUME 8.9 FL (7.4-10.4); MONOCYTES # (AUTO) 0.4 X10'3 (0-0.9); MONOCYTES % (AUTO) 7.7 % (2-12); NEUTROPHILS % (AUTO) 57.8 % (42-75); PLATELET COUNT 195 X10'3 (140-440); RED BLOOD COUNT 5.56 X10'6 (4.20-5.60); RED CELL DISTRIBUTION WIDTH 15.5 % (11.5-14.5); WHITE BLOOD COUNT 5.2 X10'3 (4.5-11.0)
[2020-01-20 16:21] LABS: ALANINE AMINOTRANSFERASE 13 U/L (12-78); ALBUMIN 3.5 G/DL (3.4-5.0); ALBUMIN/GLOBULIN RATIO 0.9 (1.1-1.5); ALKALINE PHOSPHATASE 87 IU/L (46-116); ANION GAP 9 (8-16); ASPARTATE AMINO TRANSFERASE 13 U/L (10-37); BILIRUBIN,TOTAL 0.6 MG/DL (0.1-1.0); BLOOD UREA NITROGEN 22 MG/DL (7-18); BUN/CREATININE RATIO 12.2 (6.6-38.0); CALCIUM 8.7 MG/DL (8.5-10.1); CHLORIDE 101 MMOL/L (99-107); CREATININE 1.81 MG/DL (0.40-0.90); GLUCOSE 177 MG/DL (70-104); POTASSIUM 3.4 MMOL/L (3.5-5.1); SODIUM 136 MMOL/L (135-145); TOTAL CARBON DIOXIDE 25.9 MMOL/L (24-32); TOTAL PROTEIN 7.2 G/DL (6.4-8.2); eGFR 27 ML/MIN
[2020-01-20 16:27] LABS: PLATELET ESTIMATE NORMAL
[2020-01-20 16:28] LABS: ELLIPTOCYTES 1+; HYPOCHROMASIA 1+; MICROCYTOSIS 3+; ROULEAUX 1+; SCHISTOCYTES FEW; TARGET CELLS FEW
[2020-01-20] MEDS: acetaminophen 325mg tablet PO PRN (16:42)
[2020-01-20] MEDS: sodium chloride 0.45% 1,000 ML IV SCH (17:40)
--- NOTE | 2020-01-20 18:30 | NUR ---
Problems reprioritized. Patient report given, questions answered & plan of care reviewed with BENJAMIN Torres.
--- NOTE | 2020-01-20 18:58 | NUR ---
Patient in room [facility]. I have received report from Amee ALEXANDER and had the opportunity to ask questions and assume patient care.
[2020-01-21 02:10] VITALS: BP 184/87
[2020-01-21] MEDS: cloNIDine 0.1 mg tablet PO SCH ×3 (02:10→15:23)
[2020-01-21 05:35] LABS: BASOPHILS % (AUTO) 0.5 % (0-1); HEMATOCRIT 30.6 % (35.0-45.0); HEMOGLOBIN 9.8 g/dl (12.0-16.0); LYMPHOCYTES # (AUTO) 1.4 X10'3 (1.1-4.8); LYMPHOCYTES % (AUTO) 33.2 % (21-51); MEAN CORPUSCULAR HEMOGLOBIN 18.8 PG (27.0-31.0); MEAN CORPUSCULAR VOLUME 58.8 FL (78-98); MEAN PLATELET VOLUME 9.4 FL (7.4-10.4); MONOCYTES # (AUTO) 0.4 X10'3 (0-0.9); MONOCYTES % (AUTO) 8.8 % (2-12); NEUTROPHILS # (AUTO) 2.4 X10'3 (1.8-7.7); NEUTROPHILS % (AUTO) 56.5 % (42-75); PLATELET COUNT 169 X10'3 (140-440); RED BLOOD COUNT 5.21 X10'6 (4.20-5.60); RED CELL DISTRIBUTION WIDTH 15.8 % (11.5-14.5); WHITE BLOOD COUNT 4.3 X10'3 (4.5-11.0)
[2020-01-21 05:47] LABS: ALANINE AMINOTRANSFERASE 14 U/L (12-78); ALBUMIN 3.4 G/DL (3.4-5.0); ALBUMIN/GLOBULIN RATIO 1.1 (1.1-1.5); ALKALINE PHOSPHATASE 86 IU/L (46-116); ANION GAP 9 (8-16); ASPARTATE AMINO TRANSFERASE 16 U/L (10-37); BILIRUBIN,TOTAL 0.5 MG/DL (0.1-1.0); BLOOD UREA NITROGEN 18 MG/DL (7-18); CALCIUM 8.9 MG/DL (8.5-10.1); CHLORIDE 102 MMOL/L (99-107); GLUCOSE 177 MG/DL (70-104); POTASSIUM 3.4 MMOL/L (3.5-5.1); SODIUM 137 MMOL/L (135-145); TOTAL CARBON DIOXIDE 26.1 MMOL/L (24-32); TOTAL PROTEIN 6.4 G/DL (6.4-8.2); eGFR 27 ML/MIN
[2020-01-21 05:49] VITALS: BP 145/95
[2020-01-21] MEDS: hydrALAZINE 25 MG tablet PO SCH ×3 (05:49→20:50)
--- NOTE | 2020-01-21 06:36 | NUR ---
Problems reprioritized. Patient report given, questions answered & plan of care reviewed with Sarah ALEXANDER.
[2020-01-21 06:43] LABS: HYPOCHROMASIA 2+; MICROCYTOSIS 3+; PLATELET ESTIMATE NORMAL
[2020-01-21 06:44] LABS: ELLIPTOCYTES FEW
[2020-01-21 07:00] VITALS: BP 155/95
[2020-01-21] MEDS: HYDROcodone/acetaminophen 5mg/325mg tablet PO PRN ×3 (07:43→20:50)
[2020-01-21] MEDS: sertraline 50mg tablet PO SCH (07:45)
[2020-01-21] MEDS: atorvastatin 10mg tablet PO SCH (07:45)
[2020-01-21] MEDS: lactobacillus rhamnosus 10,000 MMU CELLS/CAPSULE PO SCH ×2 (07:45→20:50)
[2020-01-21] MEDS: lisinopril 10 MG tablet PO SCH ×2 (07:45→20:51)
[2020-01-21] MEDS: apixaban 2.5mg tablet PO SCH ×2 (07:45→20:50)
[2020-01-21] MEDS: docusate sod 100mg capsule PO SCH (07:45)
[2020-01-21] MEDS: aspirin 81mg tablet.DR PO SCH (07:45)
[2020-01-21] MEDS: digoxin 125mcg (0.125mg) tablet PO SCH (07:45)
--- NOTE | 2020-01-21 07:54 | NUR ---
PAGER ID: [phone] MESSAGE: [id number] Lv, Y : pts K+ 3.4. would you like to renew replacement protocol? thank you, Sarah [phone]
[2020-01-21] MEDS: K and/or MAG REPLACEMENT MC SCH ×2 (08:00→20:00)
[2020-01-21] MEDS ORDERED: magnesium Cl slow-release 64mg tablet PO PRN (10:15)
[2020-01-21] MEDS ORDERED: magnesium 2GM in 50ml NS 50 ML IV PRN (10:15)
[2020-01-21] MEDS ORDERED: potassium CL 10mEq/100ml bag 100 ML IV PRN (10:15)
[2020-01-21] MEDS ORDERED: potassium Cl 20 mEq SR tablet PO PRN (10:15)
[2020-01-21] MEDS ORDERED: magnesium 4gm in 100ml NS 100 ML IV PRN (10:15)
[2020-01-21] MEDS: sodium chloride 0.45% 1,000 ML IV SCH (10:17)
[2020-01-21 11:00] VITALS: BP 137/77
[2020-01-21] MEDS: traMADol 50MG tablet PO PRN ×2 (11:23→15:23)
[2020-01-21 13:43] VITALS: BP 151/72
[2020-01-21] MEDS: potassium Cl 20 mEq SR tablet PO PRN ×2 (13:45→17:48)
--- NOTE | 2020-01-21 18:02 | NUR ---
Problems reprioritized. Patient report given, questions answered & plan of care reviewed with BENJAMIN Augustin.
--- NOTE | 2020-01-21 18:30 | NUR ---
Patient in room [facility]. I have received report from BENJAMIN Smith and had the opportunity to ask questions and assume patient care. Pt sitting up in bed eating dinner. Addendum: 01/21/20 at 2247 by Jailene Dowd RN Amended: Links added.
[2020-01-21 20:30] VITALS: BP 147/63
--- NOTE | 2020-01-21 22:45 | NUR ---
Pt amb to bathroom robby well to bathroom, unsteady on way back leaned to right with mod assist stood back up straight and amb back to bed. will conitnue to monitor. pt turns self in bed with ease, bed alarm on. Addendum: 01/21/20 at 2246 by Jailene Dowd RN Amended: Links added.
[2020-01-22] VITALS (7 sets, daily range): BP systolic 147–183; BP diastolic 67–101
[2020-01-22] MEDS: potassium Cl 20 mEq SR tablet PO PRN (00:10)
[2020-01-22] MEDS: cloNIDine 0.1 mg tablet PO SCH ×3 (00:10→15:51)
[2020-01-22] MEDS: sodium chloride 0.45% 1,000 ML IV SCH ×2 (03:40→20:13)
[2020-01-22] MEDS: hydrALAZINE 25 MG tablet PO SCH ×3 (04:50→20:13)
[2020-01-22] MEDS: HYDROcodone/acetaminophen 5mg/325mg tablet PO PRN ×3 (04:50→20:13)
[2020-01-22 05:19] LABS: BASOPHILS % (AUTO) 0.4 % (0-1); EOSINOPHILS % (AUTO) 0.8 % (0-6); HEMATOCRIT 30.1 % (35.0-45.0); HEMOGLOBIN 9.7 g/dl (12.0-16.0); LYMPHOCYTES # (AUTO) 1.6 X10'3 (1.1-4.8); LYMPHOCYTES % (AUTO) 36.2 % (21-51); MEAN CORPUSCULAR HGB CONC 32.3 g/dL (33.0-36.5); MEAN PLATELET VOLUME 8.5 FL (7.4-10.4); MONOCYTES # (AUTO) 0.3 X10'3 (0-0.9); MONOCYTES % (AUTO) 6.4 % (2-12); NEUTROPHILS # (AUTO) 2.5 X10'3 (1.8-7.7); NEUTROPHILS % (AUTO) 56.2 % (42-75); PLATELET COUNT 167 X10'3 (140-440); RED CELL DISTRIBUTION WIDTH 15.5 % (11.5-14.5); WHITE BLOOD COUNT 4.5 X10'3 (4.5-11.0)
[2020-01-22 05:31] LABS: ALANINE AMINOTRANSFERASE 11 U/L (12-78); ALBUMIN 3.3 G/DL (3.4-5.0); ALBUMIN/GLOBULIN RATIO 1.1 (1.1-1.5); ALKALINE PHOSPHATASE 81 IU/L (46-116); ANION GAP 8 (8-16); ASPARTATE AMINO TRANSFERASE 12 U/L (10-37); BILIRUBIN,TOTAL 0.6 MG/DL (0.1-1.0); BLOOD UREA NITROGEN 14 MG/DL (7-18); BUN/CREATININE RATIO 8.4 (6.6-38.0); CALCIUM 8.7 MG/DL (8.5-10.1); CHLORIDE 103 MMOL/L (99-107); CREATININE 1.67 MG/DL (0.40-0.90); GLUCOSE 167 MG/DL (70-104); MAGNESIUM 1.8 MG/DL (1.5-2.4); SODIUM 136 MMOL/L (135-145); TOTAL CARBON DIOXIDE 25.4 MMOL/L (24-32); TOTAL PROTEIN 6.2 G/DL (6.4-8.2); eGFR 29 ML/MIN
--- NOTE | 2020-01-22 06:27 | NUR ---
Problems reprioritized. Patient report given, questions answered & plan of care reviewed with BENJAMIN Smith. Addendum: 01/22/20 at 0627 by Jailene Dowd RN Amended: Links added.
[2020-01-22 06:36] LABS: MICROCYTOSIS 3+; PLATELET ESTIMATE NORMAL
[2020-01-22 06:37] LABS: ANISOCYTOSIS 1+; ELLIPTOCYTES 1+; HYPOCHROMASIA 2+; SCHISTOCYTES 1+; TARGET CELLS 1+
[2020-01-22] MEDS: K and/or MAG REPLACEMENT MC SCH ×2 (08:00→20:00)
[2020-01-22] MEDS: ondansetron/PF 4mg/2ml inj IV PRN (08:06)
[2020-01-22] MEDS: docusate sod 100mg capsule PO SCH (08:15)
[2020-01-22] MEDS: aspirin 81mg tablet.DR PO SCH (08:16)
[2020-01-22] MEDS: apixaban 2.5mg tablet PO SCH ×2 (08:16→20:13)
[2020-01-22] MEDS: lisinopril 10 MG tablet PO SCH ×2 (08:16→20:13)
[2020-01-22] MEDS: lactobacillus rhamnosus 10,000 MMU CELLS/CAPSULE PO SCH ×2 (08:16→20:13)
[2020-01-22] MEDS: sertraline 50mg tablet PO SCH (08:16)
[2020-01-22] MEDS: atorvastatin 10mg tablet PO SCH (08:16)
[2020-01-22] MEDS: traMADol 50MG tablet PO PRN ×2 (08:17→12:30)
[2020-01-22] MEDS: digoxin 125mcg (0.125mg) tablet PO SCH (08:22)
--- NOTE | 2020-01-22 14:30 | NUR ---
Dr Gottlieb at bedside. notified her of nausea patient dry heaving. received orders for suppository. Also notified MD of patients constant left knee pain, no new orders regarding that.
[2020-01-22] MEDS ORDERED: bisacodyl 10mg suppository rectal RC STA (14:41)
[2020-01-23] VITALS: BP 173/78
[2020-01-23] MEDS: cloNIDine 0.1 mg tablet PO SCH ×3 (00:05→16:00)
--- NOTE | 2020-01-23 00:34 | NUR ---
Problems reprioritized. Patient report given, questions answered & plan of care reviewed with BENJAMIN ZAVALETA.
[2020-01-23 03:32] VITALS: BP 164/87
[2020-01-23] MEDS: hydrALAZINE 25 MG tablet PO SCH ×3 (05:02→21:00)
[2020-01-23] MEDS: HYDROcodone/acetaminophen 5mg/325mg tablet PO PRN ×2 (05:03→11:52)
[2020-01-23 05:55] LABS: BASOPHILS % (AUTO) 0.3 % (0-1); EOSINOPHILS % (AUTO) 0.6 % (0-6); HEMATOCRIT 30.1 % (35.0-45.0); HEMOGLOBIN 9.7 g/dl (12.0-16.0); LYMPHOCYTES # (AUTO) 1.7 X10'3 (1.1-4.8); LYMPHOCYTES % (AUTO) 24.4 % (21-51); MEAN CORPUSCULAR HGB CONC 32.2 g/dL (33.0-36.5); MONOCYTES # (AUTO) 0.4 X10'3 (0-0.9); MONOCYTES % (AUTO) 5.8 % (2-12); NEUTROPHILS # (AUTO) 4.7 X10'3 (1.8-7.7); NEUTROPHILS % (AUTO) 68.9 % (42-75); PLATELET COUNT 175 X10'3 (140-440); RED BLOOD COUNT 5.11 X10'6 (4.20-5.60); RED CELL DISTRIBUTION WIDTH 15.8 % (11.5-14.5); WHITE BLOOD COUNT 6.8 X10'3 (4.5-11.0)
[2020-01-23 06:14] LABS: ALANINE AMINOTRANSFERASE 13 U/L (12-78); ALBUMIN 3.4 G/DL (3.4-5.0); ALBUMIN/GLOBULIN RATIO 1.2 (1.1-1.5); ALKALINE PHOSPHATASE 79 IU/L (46-116); ANION GAP 9 (8-16); ASPARTATE AMINO TRANSFERASE 15 U/L (10-37); BILIRUBIN,TOTAL 0.6 MG/DL (0.1-1.0); BLOOD UREA NITROGEN 14 MG/DL (7-18); BUN/CREATININE RATIO 8.7 (6.6-38.0); CALCIUM 8.7 MG/DL (8.5-10.1); CHLORIDE 103 MMOL/L (99-107); CREATININE 1.61 MG/DL (0.40-0.90); GLUCOSE 155 MG/DL (70-104); MAGNESIUM 1.8 MG/DL (1.5-2.4); POTASSIUM 3.7 MMOL/L (3.5-5.1); SODIUM 135 MMOL/L (135-145); TOTAL CARBON DIOXIDE 23.3 MMOL/L (24-32); TOTAL PROTEIN 6.3 G/DL (6.4-8.2); eGFR 31 ML/MIN
[2020-01-23 06:37] LABS: ANISOCYTOSIS 1+; HYPOCHROMASIA 2+; MICROCYTOSIS 3+; PLATELET ESTIMATE NORMAL
[2020-01-23 06:38] LABS: ELLIPTOCYTES 1+; SPHEROCYTES FEW
[2020-01-23] MEDS: digoxin 125mcg (0.125mg) tablet PO SCH (07:01)
[2020-01-23] MEDS: lactobacillus rhamnosus 10,000 MMU CELLS/CAPSULE PO SCH ×2 (07:38→22:07)
[2020-01-23] MEDS: docusate sod 100mg capsule PO SCH (07:38)
[2020-01-23] MEDS: atorvastatin 10mg tablet PO SCH (07:38)
[2020-01-23] MEDS: aspirin 81mg tablet.DR PO SCH (07:38)
[2020-01-23] MEDS: sertraline 50mg tablet PO SCH (07:39)
[2020-01-23] MEDS: apixaban 2.5mg tablet PO SCH (07:39)
[2020-01-23] MEDS: lisinopril 10 MG tablet PO SCH ×2 (07:39→21:49)
[2020-01-23] MEDS: K and/or MAG REPLACEMENT MC SCH ×2 (08:00→20:00)
[2020-01-23 08:12] VITALS: BP 173/80
[2020-01-23 11:00] VITALS: BP 179/95
[2020-01-23] MEDS ORDERED: bisacodyl 10mg suppository rectal RC ONE (11:40)
--- NOTE | 2020-01-23 11:58 | NUR ---
PAGER ID: [phone] MESSAGE: Pt. Kenia BarnettA has uncontrolled pain in lower abdomen. Can we please get a KUB? Mariposa [phone]
[2020-01-23] MEDS: traMADol 50MG tablet PO PRN ×2 (12:03→22:07)
[2020-01-23] MEDS: sodium chloride 0.45% 1,000 ML IV SCH ×2 (12:05→21:52)
--- NOTE | 2020-01-23 12:18 | NUR ---
Pt. bladder scanned. 2ml shown in bladder.
[2020-01-23] MEDS: ondansetron 4mg rapidly disintigrating tab PO PRN (13:01)
--- NOTE | 2020-01-23 13:14 | NUR ---
Pt c/o abd pain. No BM x3 days until small loose stool in toilet followed by lg amount bile emesis. Dr. Gottlieb notified. NPO, Compazine prn and KUB orders received.
[2020-01-23] MEDS ORDERED: proCHLORperazine 10 MG/2 ml inj IV PRN (13:20)
--- NOTE | 2020-01-23 16:10 | NUR ---
Reassessment: Pt NPO today, s/p KUB showing prominent stool. No significant BM documented since 01/06, has been having small BMs since. Receiving daily colace. Has prn dulcolax (not given yet). Eating 25%. Will follow up with RN regarding bowel care and bowel regularity which may contribute to improved PO Intake, constipation may lead to poor appetite and poor intake. Patient is pending placement. Recommendations: 1) Advance to regular diet as medically indicated 2) continue: oatmeal, fresh fruit, eggs, rice, and fruit a smoothie with meals; hot sauce/salsa w/ meats per preferences 3) Routine bowel care; monitor need for additional 4) Scaled weights per rx Addendum: 01/23/20 at [address] Amended: Links added.
--- NOTE | 2020-01-23 17:00 | NUR ---
Pt. fell in bathroom in room. Found by primary RN and charge notified. Pt. assessed while on floor. Pt. was holding emesis bag and vomiting red and brown emesis about 100ml. Pt. able to move lower extremities. Moved from floor to w/c by 2 staff members. Vitals taken and WNL. Pt. did not hit her head. Pt. did not want to lay down in her bed. Moved to a recliner chair. Tabs. alarm placed. Compazine given per order. made aware.
[2020-01-23] MEDS: pantoprazole 40MG/NS 100ML BAG 100 ML IV SCH ×2 (17:16→22:06)
--- NOTE | 2020-01-23 17:30 | NUR ---
Rapid called for pt. BP dropped to 87/53. Crash cart placed in front of pt's room. BP continued to be monitored and pt. was placed on heart monitor which showed irregular afib. called and came to assess pt. STAT EKG ordered to verify rhythm. states this pt. may want to be comfort care as she has stated several times, "I want to ." Blue phone ineffective for translation as the contact center representative stated, "no [employer] translators available". Mien speaking staff notified translation needed. states keep pt. NPO for now and hold all medications (protonix).
--- NOTE | 2020-01-23 17:58 | NUR ---
Pt. stating she wants to . determining code status. Blue phone used and no Mien winderman available. Pt. clearly stating "I want to ." MD states hold all medications until she figures things out.
--- NOTE | 2020-01-23 18:00 | NUR ---
Gave report to Filiberto ALEXANDER.
[2020-01-23] MEDS ORDERED: morphine 2 MG/ML inj. syringe IV STA (18:12)
--- NOTE | 2020-01-23 18:30 | NUR ---
This procedure writer was called by the house nursing hotel or motel room service supervisor to assist with translation with this patient. This procedure writer previously communicated with patient when she was in the ED/Overflow setting. Patients primary language was Mien, secondary language is broken Xu followed by limited Slovak. This patient was low fowlers in bed exhibiting acute abdominal pain involving all quads, bowel sounds are active. This patients verbal knowledge of Xu allowed for limited understanding/communication with this patient, this included broken Slovak. Another nurse arrived, Bhupinder Awan RN, aksantos Williamson. BENJAMIN Williamson was able to communicate well with patient Kenia Awan in patients [place] language, Mien. BENJAMIN Williamson reached the same conclusion independently and together that this patient desired pain relief medication, secondly the patient did not want pain medicine held, even at the risk of . The patient indicated that was a secondary concern, and was accepting of it. Dr. Gottlieb spoke with this RN and Bhupinder Awan RN (Amanda), she desired our conclusions of the patients wishes. The above information was relayed to Dr. Gottlieb who was at bedside.
--- NOTE | 2020-01-23 18:40 | NUR ---
Approximately around 1810 called into patient's room to help translate patient's [place] language "Mien". Nursing Shear Assembler MD Dr. Bull Xavier, Zaki RN from [facility], and myself Bhupinder Awan (amanda) at bedside with patient. Help Translated, and inform patient what is going on with her current health situation. I explain in mien, her blood pressure is really low, Her heart right now is beating really fast and very irregular, and she has puke blood and she could possible have some type of blood in her stomach. Patient continue to moan and cry and states in mien "My stomach is hurting so bad, I'm going to , just forget it, let me ." Nurse ask patient in Mien if she wanted us treat her and get better, Patient continues to state in mien "Just give me medication to help me feel comfortable and let me ." Nurse(Teri ochoa) Confirms with patient in mien "You would like us to give you medication to make you feel comfortable and have no pain" Patient nodds in front of MD Dr. Gottlieb, Housing Shear Assembler Morenita, Myself and Zaki ALEXANDER from [facility]. Nurse again ask patient in Mien "You dont want us to treat you to get better." Patient nodds head and said " Give me medication and let me ." With the conversation with patient in front of the , Greer Yin,and Behavioral [facility] nurse. We can clearly state patient wants to be comfortable and does not want any interventions done and medication to help with her pain.
[2020-01-23 19:00] VITALS: BP 108/44
--- NOTE | 2020-01-23 22:10 | NUR ---
Patient vitals bp-103/57, hr-93, 99%RA, RR-18, Patient resting comfortable in bed. No crying, moaning, or grimacing. Tonight she has had 2 large BM. Asked patient if her stomach is feeling better after her BM, she nodds her head. Also asked patient in her huslia language that if she was to stop breathing and her heart stops beating she does not want anything to be done. Patient states "Forget about it, if I , let me ."
--- NOTE | 2020-01-23 22:30 | NUR ---
Dr. Hi called for pain medication orders. Also updated her that patient is still agreeable to comfort care. Will continue with care.
[2020-01-23] MEDS ORDERED: LORazepam 2 mg/ml vial IV PRN (22:40)
[2020-01-24] VITALS: BP 111/65
[2020-01-24 05:43] LABS: BASOPHILS % (AUTO) 0.1 % (0-1); EOSINOPHILS % (AUTO) 0 % (0-6); HEMATOCRIT 32.5 % (35.0-45.0); HEMOGLOBIN 10.4 g/dl (12.0-16.0); LYMPHOCYTES # (AUTO) 0.9 X10'3 (1.1-4.8); LYMPHOCYTES % (AUTO) 4.2 % (21-51); MEAN CORPUSCULAR VOLUME 59.2 FL (78-98); MEAN PLATELET VOLUME 9.6 FL (7.4-10.4); MONOCYTES # (AUTO) 0.7 X10'3 (0-0.9); MONOCYTES % (AUTO) 3.2 % (2-12); NEUTROPHILS # (AUTO) 19.6 X10'3 (1.8-7.7); NEUTROPHILS % (AUTO) 92.5 % (42-75); PLATELET COUNT 190 X10'3 (140-440); RED BLOOD COUNT 5.48 X10'6 (4.20-5.60); RED CELL DISTRIBUTION WIDTH 15.8 % (11.5-14.5); WHITE BLOOD COUNT 21.2 X10'3 (4.5-11.0)
[2020-01-24 05:53] LABS: ALANINE AMINOTRANSFERASE 13 U/L (12-78); ALBUMIN 3.2 G/DL (3.4-5.0); ALBUMIN/GLOBULIN RATIO 1.1 (1.1-1.5); ALKALINE PHOSPHATASE 192 IU/L (46-116); ANION GAP 13 (8-16); ASPARTATE AMINO TRANSFERASE 23 U/L (10-37); BLOOD UREA NITROGEN 27 MG/DL (7-18); CALCIUM 8.7 MG/DL (8.5-10.1); CHLORIDE 100 MMOL/L (99-107); CREATININE 2.71 MG/DL (0.40-0.90); GLUCOSE 219 MG/DL (70-104); MAGNESIUM 1.9 MG/DL (1.5-2.4); SODIUM 136 MMOL/L (135-145); TOTAL CARBON DIOXIDE 23.4 MMOL/L (24-32); TOTAL PROTEIN 6.2 G/DL (6.4-8.2); eGFR 17 ML/MIN
--- NOTE | 2020-01-24 06:20 | NUR ---
Problems reprioritized. Patient report given, questions answered & plan of care reviewed with BENJAMIN Burrows.
[2020-01-24 06:42] LABS: ANISOCYTOSIS 1+; TOTAL CELLS COUNTED 100
[2020-01-24 06:43] LABS: PLATELET ESTIMATE NORMAL
[2020-01-24 06:44] LABS: ELLIPTOCYTES 1+; HYPOCHROMASIA 2+; MICROCYTOSIS 3+; POLYCHROMASIA 1+
[2020-01-24 06:45] LABS: SCHISTOCYTES FEW
--- NOTE | 2020-01-24 06:53 | NUR ---
Patient in room [facility] 357. I have received report from BENJAMIN MARIE and had the opportunity to ask questions and assume patient care.
[2020-01-24 07:00] VITALS: BP 109/60
[2020-01-24] MEDS ORDERED: pantoprazole 40mg Tablet.DR PO SCH (07:30)
[2020-01-24] MEDS: K and/or MAG REPLACEMENT MC SCH ×2 (08:00→20:00)
[2020-01-24] MEDS: atorvastatin 10mg tablet PO SCH (08:57)
[2020-01-24] MEDS: docusate sod 100mg capsule PO SCH (08:57)
[2020-01-24] MEDS: sertraline 50mg tablet PO SCH (08:57)
[2020-01-24] MEDS: lactobacillus rhamnosus 10,000 MMU CELLS/CAPSULE PO SCH ×2 (08:57→20:00)
[2020-01-24] MEDS: digoxin 125mcg (0.125mg) tablet PO SCH (09:43)
[2020-01-24] MEDS: traMADol 50MG tablet PO PRN (09:47)
--- NOTE | 2020-01-24 10:43 | NUR ---
F/u: Per RN notes pt with two large BMs yesterday and upset stomach improved following BMs. Pt continues to be NPO, with 100 mL red/brown emesis yesterday per RN notes. Patient's code status has been changed to DNR with comfort care. Routine and PRN bowel care remain available. Will continue to follow per LOS. Recommendations: 1) Bowel care per comfort care measures Addendum: 01/24/20 at [address] Amended: Links added.
[2020-01-24 11:00] VITALS: BP 120/70
--- NOTE | 2020-01-24 11:55 | NUR ---
Went in to see patient with Dr. Gottlieb. Dr. Gottlieb asked patient, " if you want to we will stop your medications." This RN speaks in patient's pauma language (Mien) and interpreted word for word to patient. Patient exclaimed loudly, "I want to ." Patient nodded yes and said yes in mien when asked if she understands what was translated to her.
[2020-01-24 18:00] VITALS: BP 159/71
--- NOTE | 2020-01-24 18:29 | NUR ---
Problems reprioritized. Patient report given, questions answered & plan of care reviewed with BENJAMIN MARIE.
--- NOTE | 2020-01-24 18:31 | NUR ---
I have received report from BENJAMIN Burrows and had the opportunity to ask questions and assume patient care.
--- NOTE | 2020-01-25 06:26 | NUR ---
Problems reprioritized. Patient report given, questions answered & plan of care reviewed with BENJAMIN Monge.
--- NOTE | 2020-01-25 06:47 | NUR ---
PAGER ID: [phone] MESSAGE: Kenia Awan 84 Pt. is NPO, not on any fluids, and on comfort care. She also has all of her medications still ordered including PO medications. Mariposa [phone]
[2020-01-25 07:00] VITALS: BP 173/93
--- NOTE | 2020-01-25 07:36 | NUR ---
PAGER ID: [phone] MESSAGE: Kenia BarnettA Cannot administer 0700 digoxin or other oral ordered medication without verbal clarification from MD. Please call the floor when you can- thank you Mariposa [phone]
[2020-01-25] MEDS: morphine 2 MG/ML inj. syringe IV PRN ×2 (09:00→17:28)
[2020-01-25 11:30] VITALS: BP 174/98
--- NOTE | 2020-01-25 18:13 | NUR ---
Gave report to Coleen ALEXANDER. Pt. has no c/o or needs at this time.
[2020-01-25 18:15] VITALS: BP 184/81
--- NOTE | 2020-01-25 18:33 | NUR ---
Patient in room [facility] 357. I have received report from BENJAMIN Monge and had the opportunity to ask questions and assume patient care.
--- NOTE | 2020-01-26 06:54 | NUR ---
Problems reprioritized. Patient report given, questions answered & plan of care reviewed with BENJAMIN Monge.
[2020-01-26] MEDS: morphine 2 MG/ML inj. syringe IV PRN (06:58)
[2020-01-26 07:00] VITALS: BP 199/94
[2020-01-26 11:44] VITALS: BP 206/155
[2020-01-26] MEDS: ondansetron/PF 4mg/2ml inj IV PRN (12:37)
--- NOTE | 2020-01-26 18:30 | NUR ---
GAVE REPORT TO ALLAN ALEXANDER. PT. IN ROOM WITH BED ALARM ON.
[2020-01-26 20:00] VITALS: BP 205/112
--- NOTE | 2020-01-27 01:42 | NUR ---
Patient in room [facility] 357. I have received report from Mariposa ALEXANDER and had the opportunity to ask questions and assume patient care.
--- NOTE | 2020-01-27 06:38 | NUR ---
Problems reprioritized. Patient report given, questions answered & plan of care reviewed with Mariposa ALEXANDER.
[2020-01-27 07:00] VITALS: BP 184/114
--- NOTE | 2020-01-27 13:33 | NUR ---
PAGER ID: [phone] MESSAGE: Kenia Awan [id number] Pt. daughter called me. She wants to talk to you about code status. already explained to her that pt. is A&0 and that it was her decision. Jammie still wants to talk to you. Her # is in nursing notes. Mariposa [phone]
--- NOTE | 2020-01-27 13:33 | NUR ---
Jammie (pt's daughter) [phone]
--- NOTE | 2020-01-27 18:30 | NUR ---
Patient in room [facility] 357. I have received report from Mariposa ALEXANDER and had the opportunity to ask questions and assume patient care.
--- NOTE | 2020-01-27 18:59 | NUR ---
Report given to Teri ALEXANDER.
[2020-01-27 20:00] VITALS: BP 169/10
--- NOTE | 2020-01-27 20:30 | NUR ---
Tonight patient awake resting well in bed. Nurse ask patient if she remembers her daughter Jammie calling. Patient started mumble something and nurse could not understand what patient was saying. Nurse ask patient in her [place] language if she was hungry. Patient stated tonight she doesn't know why but she is hungry, and also stated her father had told her to eat. Nurse offer patient chicken broth and rice. Patient agreeable with food choice. Charge nurse was able to go down to the kitchen and grab rice and chicken broth. Nurse sat patient up to assess swallowing ability. Patient had no difficulty swallowing the rice. Nurse made patient a chicken rice soup patient ate about 75% of it. Will continue with care.
--- NOTE | 2020-01-28 06:40 | NUR ---
Problems reprioritized. Patient report given, questions answered & plan of care reviewed with Mariposa ALEXANDER.
[2020-01-28 08:00] VITALS: BP 202/98
--- NOTE | 2020-01-28 12:00 | NUR ---
Spoke with Roslyn in . States pt. will be leaving in AM to go to [facility]. Needs COVID test before discharge, Roslyn currently arranging transportation. Spoke with MD cole pt. diet. does not wish to advance diet at this time.
--- NOTE | 2020-01-28 18:51 | NUR ---
Patient in room [facility] 357. I have received report from BENJAMIN Monge and had the opportunity to ask questions and assume patient care. Pt sitting up in bed no complaints, bed alarm on. Addendum: 01/28/20 at 1852 by Jailene Dowd RN Amended: Links added.
[2020-01-28 19:00] VITALS: BP 196/133
--- NOTE | 2020-01-28 19:00 | NUR ---
htn all pt htn medications dc'd pt on comfort care, md is aware of b/p. pt denies pain, h/a or anxiety at this time. Addendum: 01/28/20 at 2238 by Jailene Dowd RN Amended: Links added.
--- NOTE | 2020-01-28 19:05 | NUR ---
Gave report to Demetria ALEXANDER.
[2020-01-28] MEDS: morphine 2 MG/ML inj. syringe IV PRN (21:26)
[2020-01-28 23:30] VITALS: BP 115/66
--- NOTE | 2020-01-29 06:36 | NUR ---
Problems reprioritized. Patient report given, questions answered & plan of care reviewed with BENJAMIN Perry. Addendum: 01/29/20 at 0636 by Jailene Dowd RN Amended: Links added.
--- NOTE | 2020-01-29 06:51 | NUR ---
Patient in room [facility]. I have received report from Demetria ALEXANDER and had the opportunity to ask questions and assume patient care.
[2020-01-29 07:12] VITALS: BP 184/100
--- NOTE | 2020-01-29 09:34 | NUR ---
Patient discharged with all belongings. Radha to transport pt via [place].
== END 2020-01-29 09:20 | DRG 682 ==
LOC: ER 23:08 → ED HOLD 12-21 22:23 → SUR 3N 12-22 01:13
PROVIDERS: ADMIT Family Medicine; ATTEND Family Medicine
DX: N17.9 Acute kidney failure, unspecified (principal); I63.9 Cerebral infarction, unspecified; G93.40 Encephalopathy, unspecified; N39.0 Urinary tract infection, site not specified; R45.851 Suicidal ideations; K92.0 Hematemesis; Z68.1 Body mass index [BMI] 19.9 or less, adult; E86.0 Dehydration; E87.6 Hypokalemia; F41.8 Other specified anxiety disorders; E78.5 Hyperlipidemia, unspecified; L98.9 Disorder of the skin and subcutaneous tissue, unspecified; F03.90 Unspecified dementia, unspecified severity, without behavioral disturbance, psychotic disturbance, mood disturbance, and anxiety; E11.22 Type 2 diabetes mellitus with diabetic chronic kidney disease; I12.9 Hypertensive chronic kidney disease with stage 1 through stage 4 chronic kidney disease, or unspecified chronic kidney disease; N18.3 Chronic kidney disease, stage 3 (moderate); I48.91 Unspecified atrial fibrillation; R26.9 Unspecified abnormalities of gait and mobility; R62.7 Adult failure to thrive; M25.562 Pain in left knee; Z86.73 Personal history of transient ischemic attack (TIA), and cerebral infarction without residual deficits; Z66 Do not resuscitate; Z51.5 Encounter for palliative care; Z79.01 Long term (current) use of anticoagulants; Z79.899 Other long term (current) drug therapy; Z81.8 Family history of other mental and behavioral disorders; I95.9 Hypotension, unspecified
CPT/HCPCS: 36415; 70450; 70544; 70551; 74018; 76937; 80048; 80053; 80061; 80162; 80305; 80320; 81001; 82728; 82948; 83036; 83540; 83550; 83735; 84132; 84443; 85025; 87081; 87088; 87635; 88304; 93005; 93306; 93880; 94760; 96374; 97110; 97112; 97116; 97161; 97530; 99285; C9113; G0378; J0360; J0696; J0780; J1815; J2060; J2270; J2405; J3490; J7030